=== PATIENT | female | born 2000 | race Caucasian/White ===

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

== ENCOUNTER 2021-03-04 12:20 | Emergency (ER) | payer MEDICAID, SELFPAY ==
[2021-03-04] VITALS (54 sets, daily range): BP systolic 109–172; BP diastolic 63–104; PULSE 81–144; RESP 0–36; TEMP 37; O2SAT 85–100; BMI 42.5
[2021-03-04] MEDS: LORazepam 2 mg/mL INJ 1 mL (12:23)
[2021-03-04] MEDS: succinylcholine 20 mg/mL SDV 10mL 120 MG IVP (12:38)
[2021-03-04] MEDS: propofol 10 mg/mL SDV 20 mL 50 MG IVP ×4 (12:41→13:12)
--- NOTE | 2021-03-04 12:42 | CT_ITS ---
WS: [id number] CT HEAD NONCONTRAST HISTORY: closed head injury TECHNIQUE: Contiguous axial imaging performed through the brain in 2.5 mm imaging. Bone and soft tiss ue windows. Sagittal and coronal reformats reviewed. All CT scans at [facility] use at ast one of these dose optimization techniques: automated exposure control; mA and/or kV adjustment pe r patient size (includes targeted exams where dose is matched to clinical indication); or iterative r econstruction. DLP: 983.73 mGy.cm COMPARISON: 11/05/2020 No acute intracranial hemorrhage, midline shift or mass effect. No atrophy or prior infarcts or herniation. Ventricles: Normal size with no hydrocephalus. Paranasal sinuses: Near complete opacification of the maxillary sinuses. Mastoid air cells: Well pneumatized. Calvarium and scalp: Skull is intact with no soft tissue edema or swelling. CT/CT head wo con* [id number] IMPRESSION: 1. No acute intracranial hemorrhage or edema. 2. Bilateral maxillary sinusitis.
--- NOTE | 2021-03-04 12:42 | CT_ITS ---
WS: [id number] CT CERVICAL SPINE HISTORY: fall TECHNIQUE: Contiguous 2.5 mm axial imaging performed through the entire cervical spine. Sagittal and coronal reformats also performed. All CT scans at [facility] use at least one of these do se optimization techniques: automated exposure control; mA and/or kV adjustment per patient size (inc ludes targeted exams where dose is matched to clinical indication); or iterative reconstruction. DLP: 738.27 mGy.cm COMPARISON: None available. Mild straightening of the normal cervical lordosis. Normal craniocervical alignment. Lateral masses o f C1 and C2 are aligned. Patient is intubated. Nasogastric tube is in place. C2-C3: Normal. C3-C4: Normal. C4-C5: Normal. C5-C6: Normal. C6-C7: Normal. C7-T1: Normal. Soft tissues are normal. Lung apices are clear. CT/CT cervical spin wo con* [id number] IMPRESSION: No cervical spine fracture.
--- NOTE | 2021-03-04 12:43 | XR_ITS ---
WS: [id number] Exam: XR chest 1V portable [id number] Date/Time of Exam: 03/04/2021 1:18 PM Reason For Exam: post intubation Comparison 11/05/2020. An endotracheal tube is in place ending about 4 cm above the dinorah in good position. An NG tube is b een placed and appears to end in the body the stomach. Patchy bilateral perihilar infiltrates are see n. The lungs are fully inflated. No pleural effusion. Normal cardiomediastinal silhouette and regiona l bony structures. XR/XR chest 1V portable [id number] IMPRESSION: 1. Bilateral perihilar infiltrates. 2. NG tube extending below the diaphragm and appearing to end in the body the s tomach. 3. ET tube in good position ending about 4 cm above the dinorah.
--- NOTE | 2021-03-04 12:48 | W.ED.SEIZURE ---
HPI - Seizure General: Chief Complaint: Seizure Stated Complaint: SEIZURES Time Seen by Provider: 03/04/21 12:24 History of Present Illness: HPI Narrative: 20-year-old female with a history of seizure disorder. This morning she was at a relatives house was taking a shower and they heard a large commotion went to the bathroom and found that she had fallen in the shower and witnessed a seizure. She arrived here 45 minutes to an hour afterwards 1 arrival here she had sonorous respirations and was hypoxic and tachycardic. I did witness a seizure as well she not have any tonic-clonic movement but had stiffened at the jaw and her extremities. EMS reports witnessing 2 seizures in route. Grandmother at the bedside believes she is on BuSpar and one other antiseizure medications according to our old records she is on zonisamide. They do not believe she is run out of or missed any medications recently. MD complaint: seizure Onset (ago): hour(s) Description of Episode: loss of consciousness and tonic-clonic movement Witnessed: Yes - by Bystander Seizure History: Yes Place: Home Possible Precipitating Event: medication (Her family had been titrating herself off of the seizure meds.) Treatments prior to arrival: airway maneuvers Review of Systems General: Reports: ROS unobtainable due to medical condition PFSH ED PFSH: Medical History (Updated 03/05/21 @ 06:32 by Augie Aguilera DO) Anxiety Seizure Seizure Viral meningitis Surgical History History of repair of ACL Football injury Family History Denies family history of Hyperlipidemia Lung disease Hypertension Social History Smoking and tobacco status: never smoked Alcohol intake: current Household members: family Housing: Other Details: Currently living with her grandparents Current occupational status: employed Current occupation: She works at [employer] Physical Exam Eye: COMMON NORMALS: Equal, round and reactive pupils present PUPIL: Yes Equal, round and reactive pupils present Resp: EFFORT & INSPECTION: Yes respiratory distress, Yes decreased respiratory effort, Yes labored and Yes grunting AUSCULTATION: rhonchi and diminished lung sounds Cardio: COMMON NORMALS: regular rhythm RATE: tachycardic RHYTHM: regular rhythm GI: COMMON NORMALS: Soft to palpation and No hepatosplenomegaly present AUSCULTATION: Yes normoactive bowel sounds PALPATION: Yes Soft to palpation, No Tenderness to palpation present (GI), No Guarding due to palpation present (GI) and Yes No hepatosplenomegaly present Extremity: COMMON NORMALS: normal to inspection, capillary refill normal, no clubbing, cyanosis or edema, no calf tenderness and no pedal edema Skin: COMMON NORMALS: no rashes or lesions noted GENERAL SKIN EXAM: no rashes or lesions noted Procedures Intubation Time out performed: Yes sedative: Etomidate Mg Given: 30 paralytic: Succinylcholine Mg Given: 120 Laryngoscope: Jodi ET Tube Size: 8 ET Tube Uncuffed: No Tube Secured Depth (cm): 22 Tube Secured Location: teeth Tube Placement Confirmation: visualized tube passing through cords, equal breath sounds bilaterally, no breath sounds over epigastrium and confirmation by capnometry Patient Tolerated Procedure: well Intubation Complications: none Additional Comments: Dr. Tran performed direct laryngoscopy intubation I proctored his attempt at the bedside. Intubation successful on first attempt. Course Vital Signs: Vital signs: Vital Signs Temperature 98.6 F 03/04/21 12:36 Pulse Rate 87 03/04/21 17:25 Respiratory Rate 9 L 03/04/21 17:25 Blood Pressure 131/97 03/04/21 17:25 Pulse Oximetry 100 03/04/21 17:25 MDM - Seizure MDM Narrative: Medical decision making narrative: Patient in severe respiratory distress with sonorous respirations on arrival. She she was significantly hypoxic. She was intubated and started on a ventilator. First blood gas had a pH is 7.25 that was 30 minutes after intubation another hour later repeat ABG showed her blood gases had essentially normalized. Patient has been started on Versed when it was an adequate for sedation propofol was added. She not had any further seizures.on chest x-ray it appears patient has had significant aspiration confirmed also by suctioning through the ET tube. She was started on clindamycin. She was loaded with Keppra as well as being on the Versed and propofol drips. Discussed course of care with the family. We do have ICU bed available there is also availability of pulmonology and neurology. Family wishes to have patient transferred that initially asked for transfer to [facility] however [facility] declined stating they did not have any available ICU beds at the time and additionally they felt we had appropriate resources to care for the patient. Family was informed the next chose to go to [facility] ICU. Contacted Dr. Bennett he agreed to accept the patient on transfer. Lab Data: Labs: Lab Results 03/04/21 03/04/21 03/04/21 Range/Units 12:20 13:30 13:30 WBC 13.5 H (4.5-13.0) 10^3/ uL RBC 4.93 (4.1-5.3) 10^6/u L Hgb 15.5 H (11.5-15.3) g/dL Hct 47.7 H (37.0-47.0) % MCV 96.8 (81-99) fL MCH 31.4 (28.0-34.0) pg MCHC 32.5 (30.0-36.0) g/dL RDW 12.3 (12.1-15.1) % Plt Count 375 (130-400) 10^3/c mm MPV 10.2 (7.4-10.4) fL Neut % (Auto) 51.4 % Lymph % (Auto) 39.0 % [place] % (Auto) 6.6 % Eos % (Auto) 1.5 % Baso % (Auto) 0.8 % Neut # (Auto) 6.92 (1.8-8.0) 10^3/u L Lymph # (Auto) 5.3 (1.5-6.5) 10^3/u L [place] # (Auto) 0.9 (0.2-0.9) 10^3/u L Eos # (Auto) 0.2 (0.0-0.8) 10^3/u L Baso # (Auto) 0.1 (0.0-0.1) 10^3/u L Nucleated RBC % (a uto) 0 % Nucleated RBCs # 0.0 /100WBC Specimen Type Sample Site ABG pH (7.35-7.45) ABG pCO2 (35-45) mmHg ABG pO2 (80.0-100.0) mmH g ABG HCO3 (22-26) mmol/L ABG O2 Saturation ABG Base Excess (-2.0-2.0) mmol/ L Jeffry Test A-a O2 Gradient (5-10) mmHg Hematocrit (37-47) % Hgb O2 Saturation (95-100) % Carboxyhemoglobin (0.4-20.1) %THgb Methemoglobin (0.4-1.5) % Total Hemoglobin (12-16) g/dL Sodium (131-143) mmol/L Potassium (3.5-5.0) mmol/L Glucose (70-115) mg/dL Ionized Calcium (1.1-1.4) mmol/L O2 Delivery Device O2 Liters/Min % FiO2 % Tidal Volume PEEP cmH20 Mailhouse Operator ID Chloride (98-107) mmol/L Carbon Dioxide (22-29) mmol/L Anion Gap (5-19) BUN (6-20) mg/dL Creatinine (0.5-0.9) mg/dL GFR Calculation (90-130) mL/min Calculated Osmolal ity (285-295) mOsm/k g Lactic Acid Calcium (8.5-10.5) mg/dL Magnesium (1.7-2.2) mg/dL Total Bilirubin (0.15-1.2) mg/dL AST (0-32) U/L ALT (0-33) U/L Alkaline Phosphata se (35-105) IU/L Creatine Kinase (26-192) U/L Total Protein (6.6-8.7) g/dL Albumin (3.5-5.2) g/dL Globulin (1.3-4.6) g/dL Urine Color Yellow (Yellow) Urine Appearance Hazy A (CLEAR) Urine pH 5 (5-7) Ur Specific Gravit y 1.025 (1.005-1.030) Urine Protein 2+ H (Negative) Urine Glucose (UA) 4+ H (Normal) Urine Ketones 1+ H (Negative) Urine Blood 2+ H (Negative) Urine Nitrate Negative (Negative) Urine Bilirubin Neg (Negative) Urine Urobilinogen Norm (Negative) mg/dL Ur Leukocyte Kayley ase Negative (Negative) Urine RBC 0-4 H (0-2) /hpf Urine WBC None (0-5) /hpf Ur Squamous Epith Cells 5-10 H (0-5) /hpf Amorphous Sediment Not Reportable Urine Bacteria Trace (NONE) /hpf Urine Opiates Scre en Negative (Negative) ng/mL Ur Barbiturates Sc reen Negative (Negative) ng/mL Ur Phencyclidine S crn Negative (Negative) ng/mL Ur Amphetamines Sc reen Negative (Negative) ng/mL U Benzodiazepines Scrn Negative (Negative) ng/mL Urine Cocaine Scre en Negative (Negative) ng/mL U Marijuana (THC) Screen Positive H (Negative) ng/mL Ethyl Alcohol (0-10) mg/dL 03/04/21 03/04/21 03/04/21 Range/Units 13:36 13:45 13:45 WBC (4.5-13.0) 10^3/ uL RBC (4.1-5.3) 10^6/u L Hgb (11.5-15.3) g/dL Hct (37.0-47.0) % MCV (81-99) fL MCH (28.0-34.0) pg MCHC (30.0-36.0) g/dL RDW (12.1-15.1) % Plt Count (130-400) 10^3/c mm MPV (7.4-10.4) fL Neut % (Auto) % Lymph % (Auto) % [place] % (Auto) % Eos % (Auto) % Baso % (Auto) % Neut # (Auto) (1.8-8.0) 10^3/u L Lymph # (Auto) (1.5-6.5) 10^3/u L [place] # (Auto) (0.2-0.9) 10^3/u L Eos # (Auto) (0.0-0.8) 10^3/u L Baso # (Auto) (0.0-0.1) 10^3/u L Nucleated RBC % (a uto) % Nucleated RBCs # /100WBC Specimen Type Arterial Sample Site Radial, left ABG pH 7.25 L (7.35-7.45) ABG pCO2 55.5 H (35-45) mmHg ABG pO2 77.2 L (80.0-100.0) mmH g ABG HCO3 24.4 (22-26) mmol/L ABG O2 Saturation 93.3 ABG Base Excess -3.8 L (-2.0-2.0) mmol/ L Jeffry Test Pos A-a O2 Gradient 45.8 H (5-10) mmHg Hematocrit 48.5 H (37-47) % Hgb O2 Saturation 91.3 L (95-100) % Carboxyhemoglobin 1.1 (0.4-20.1) %THgb Methemoglobin 1.0 (0.4-1.5) % Total Hemoglobin 15.8 (12-16) g/dL Sodium 139.0 137 (131-143) mmol/L Potassium 4.7 3.6 (3.5-5.0) mmol/L Glucose 132.0 H 207 H (70-115) mg/dL Ionized Calcium 1.3 (1.1-1.4) mmol/L O2 Delivery Device Vent O2 Liters/Min % FiO2 70.0 % Tidal Volume 0.50 PEEP cmH20 Mailhouse Operator ID Cak Chloride 99 (98-107) mmol/L Carbon Dioxide 18 L (22-29) mmol/L Anion Gap 23.6 H (5-19) BUN 9 (6-20) mg/dL Creatinine 0.8 (0.5-0.9) mg/dL GFR Calculation 92.4 (90-130) mL/min Calculated Osmolal ity 289 (285-295) mOsm/k g Lactic Acid Cancelled Calcium 9.2 (8.5-10.5) mg/dL Magnesium 1.8 (1.7-2.2) mg/dL Total Bilirubin 0.3 (0.15-1.2) mg/dL AST 21 (0-32) U/L ALT 27 (0-33) U/L Alkaline Phosphata se 86 (35-105) IU/L Creatine Kinase 129 (26-192) U/L Total Protein 8.0 (6.6-8.7) g/dL Albumin 4.8 (3.5-5.2) g/dL Globulin 3.2 (1.3-4.6) g/dL Urine Color (Yellow) Urine Appearance (CLEAR) Urine pH (5-7) Ur Specific Gravit y (1.005-1.030) Urine Protein (Negative) Urine Glucose (UA) (Normal) Urine Ketones (Negative) Urine Blood (Negative) Urine Nitrate (Negative) Urine Bilirubin (Negative) Urine Urobilinogen (Negative) mg/dL Ur Leukocyte Kayley ase (Negative) Urine RBC (0-2) /hpf Urine WBC (0-5) /hpf Ur Squamous Epith Cells (0-5) /hpf Amorphous Sediment Urine Bacteria (NONE) /hpf Urine Opiates Scre en (Negative) ng/mL Ur Barbiturates Sc reen (Negative) ng/mL Ur Phencyclidine S crn (Negative) ng/mL Ur Amphetamines Sc reen (Negative) ng/mL U Benzodiazepines Scrn (Negative) ng/mL Urine Cocaine Scre en (Negative) ng/mL U Marijuana (THC) Screen (Negative) ng/mL Ethyl Alcohol < 10 (0-10) mg/dL 03/04/21 03/04/21 03/04/21 Range/Units 14:45 14:54 16:08 WBC (4.5-13.0) 10^3/ uL RBC (4.1-5.3) 10^6/u L Hgb (11.5-15.3) g/dL Hct (37.0-47.0) % MCV (81-99) fL MCH (28.0-34.0) pg MCHC (30.0-36.0) g/dL RDW (12.1-15.1) % Plt Count (130-400) 10^3/c mm MPV (7.4-10.4) fL Neut % (Auto) % Lymph % (Auto) % [place] % (Auto) % Eos % (Auto) % Baso % (Auto) % Neut # (Auto) (1.8-8.0) 10^3/u L Lymph # (Auto) (1.5-6.5) 10^3/u L [place] # (Auto) (0.2-0.9) 10^3/u L Eos # (Auto) (0.0-0.8) 10^3/u L Baso # (Auto) (0.0-0.1) 10^3/u L Nucleated RBC % (a uto) % Nucleated RBCs # /100WBC Specimen Type Arterial Sample Site Brachial, right ABG pH 7.35 (7.35-7.45) ABG pCO2 43.1 (35-45) mmHg ABG pO2 104.0 H (80.0-100.0) mmH g ABG HCO3 23.5 (22-26) mmol/L ABG O2 Saturation 98.1 ABG Base Excess -2.3 L (-2.0-2.0) mmol/ L Jeffry Test Pos A-a O2 Gradient 43.9 H (5-10) mmHg Hematocrit 47.0 (37-47) % Hgb O2 Saturation 96.1 (95-100) % Carboxyhemoglobin 0.9 (0.4-20.1) %THgb Methemoglobin 1.1 (0.4-1.5) % Total Hemoglobin 15.3 (12-16) g/dL Sodium 140.0 (131-143) mmol/L Potassium 4.8 (3.5-5.0) mmol/L Glucose 104.0 (70-115) mg/dL Ionized Calcium 1.3 (1.1-1.4) mmol/L O2 Delivery Device Vent O2 Liters/Min 6.0 % FiO2 70.0 % Tidal Volume PEEP 5.0 cmH20 Mailhouse Operator ID Cak Chloride (98-107) mmol/L Carbon Dioxide (22-29) mmol/L Anion Gap (5-19) BUN (6-20) mg/dL Creatinine (0.5-0.9) mg/dL GFR Calculation (90-130) mL/min Calculated Osmolal ity (285-295) mOsm/k g Lactic Acid Cancelled 1.9 Calcium (8.5-10.5) mg/dL Magnesium (1.7-2.2) mg/dL Total Bilirubin (0.15-1.2) mg/dL AST (0-32) U/L ALT (0-33) U/L Alkaline Phosphata se (35-105) IU/L Creatine Kinase (26-192) U/L Total Protein (6.6-8.7) g/dL Albumin (3.5-5.2) g/dL Globulin (1.3-4.6) g/dL Urine Color (Yellow) Urine Appearance (CLEAR) Urine pH (5-7) Ur Specific Gravit y (1.005-1.030) Urine Protein (Negative) Urine Glucose (UA) (Normal) Urine Ketones (Negative) Urine Blood (Negative) Urine Nitrate (Negative) Urine Bilirubin (Negative) Urine Urobilinogen (Negative) mg/dL Ur Leukocyte Kayley ase (Negative) Urine RBC (0-2) /hpf Urine WBC (0-5) /hpf Ur Squamous Epith Cells (0-5) /hpf Amorphous Sediment Urine Bacteria (NONE) /hpf Urine Opiates Scre en (Negative) ng/mL Ur Barbiturates Sc reen (Negative) ng/mL Ur Phencyclidine S crn (Negative) ng/mL Ur Amphetamines Sc reen (Negative) ng/mL U Benzodiazepines Scrn (Negative) ng/mL Urine Cocaine Scre en (Negative) ng/mL U Marijuana (THC) Screen (Negative) ng/mL Ethyl Alcohol (0-10) mg/dL Critical Care Time Critical Care Time: Critical Care Time: Yes Total Critical Care Time: 60 Attestation: This case had a high probability of a clinically significant, sudden, or life threatening deterioration of this patient's condition which required my full and direct attention, intervention and personal management. Discharge Plan Discharge Patient Disposition: Xfer Short-Term Hosp Clinical Impression: Epileptic seizure, Aspiration into airway, Respiratory failure, acute Referrals: Malika Rodriguez MD [Primary Care Provider] - Coding Level of Care Code ED Rubber Off for Capri Charles
[2021-03-04] MEDS: vecuronium 10 mg SDV IVP (13:15)
[2021-03-04] MEDS: propofol 1,000 MG/100 ML INJ 7 MG (13:20)
[2021-03-04 13:47] LABS: ABG PCO2 55.5 mmHg (35-45); ABG PH Result 7.25 (7.35-7.45); Alveolar-Arterial Oxygen Gradi 45.8 mmHg (5-10); Arterial Blood Gas Hematocrit 48.5 % (37-47); Base Excess ABG -3.8 mmol/L (-2.0-2.0); Blood Gas Allen Test Pos; Blood Gas Operator Identificat CAK; Blood Gas Sample Site Radial, left; Blood Gas Sample Type Arterial; Carboxyhemoglobin 1.1 %THgb (0.4-20.1); HCO3 ABG 24.4 mmol/L (22-26); HGB O2 Sat 91.3 % (95-100); Ionized Calcium Level - ABG 1.3 mmol/L (1.1-1.4); Oxygen Device VENT; Oxygen Saturation ABG 93.3; PO2 ABG 77.2 mmHg (80.0-100.0); Potassium Level - ABG 4.7 mmol/L (3.5-5.0); Total Hemoglobin 15.8 g/dL (12-16)
[2021-03-04 14:00] LABS: Basophils # 0.1 10^3/uL (0.0-0.1); Basophils % 0.8 %; Eosinophils # 0.2 10^3/uL (0.0-0.8); Eosinophils % 1.5 %; Hematocrit 47.7 % (37.0-47.0); Hemoglobin 15.5 g/dL (11.5-15.3); Lymphocytes # 5.3 10^3/uL (1.5-6.5); Mean Corpuscular HGB Conc 32.5 g/dL (30.0-36.0); Mean Corpuscular Hemoglobin 31.4 pg (28.0-34.0); Mean Corpuscular Volume 96.8 fL (81-99); Mean Platelet Volume 10.2 fL (7.4-10.4); Monocytes # 0.9 10^3/uL (0.2-0.9); Monocytes % 6.6 %; Neutrophils # 6.92 10^3/uL (1.8-8.0); Neutrophils % 51.4 %; Nucleated Red Blood Cells % 0 %; Platelet Count 375 10^3/cmm (130-400); Red Blood Count 4.93 10^6/uL (4.1-5.3); Red Cell Distribution Width 12.3 % (12.1-15.1); White Blood Count 13.5 10^3/uL (4.5-13.0)
--- NOTE | 2021-03-04 14:14 | PC.NURSE ---
Pt arrived to ED at 1220 and was obtuned with RR at 36 and 85% on room air. Pt placed on 12L NRB mask requiring nasopharyngeal airway to left nare and jaw thrust performed by RT. Pt was sedated and intubated by Dr Tran at 1238 with an 8.0 tube, 23 at the lip. Pt tolerated procedure fair. Pt sats dropped to 81% during intubation and was brought up to 92% immediately upon intubation with BVM assist. Pt was taken to CT at 1313 with RT, this nurse and was on transport monitor. Pt required IVP Vecuronium during CT d/t inability to keep pt sedated. Pt placed on propofol gtt at 1320 upon return to room. Pt placed in soft wrist restraints at 1410 d/t pulling at tubes. Pt suctioned at this time. Pt vent settings as follows: TV 500, RR 14, Peep5, FiO2 60%.
[2021-03-04 14:23] LABS: Alanine Aminotransferase 27 U/L (0-33); Albumin Level 4.8 g/dL (3.5-5.2); Alkaline Phosphatase 86 IU/L (35-105); Anion Gap 23.6 (5-19); Aspartate Amino Transferase 21 U/L (0-32); Blood Urea Nitrogen 9 mg/dL (6-20); Calcium 9.2 mg/dL (8.5-10.5); Carbon Dioxide 18 mmol/L (22-29); Chloride 99 mmol/L (98-107); Creatine Phosphokinase 129 U/L (26-192); Globulin 3.2 g/dL (1.3-4.6); Glomerular Filtration Rate 92.4 mL/min (90-130); Glucose 207 mg/dL (65-115); Magnesium 1.8 mg/dL (1.7-2.2); Osmolality Calculated 289 mOsm/kg (285-295); Potassium 3.6 mmol/L (3.5-5.1); Sodium 137 mmol/L (136-145); Total Bilirubin 0.3 mg/dL (0.15-1.2)
[2021-03-04 14:27] LABS: Alcohol Level < 10 mg/dL (0-10)
[2021-03-04 14:29] LABS: Amphetamines Screen Urine Negative (Negative); Barbiturates Screen Urine Negative (Negative); Benzodiazepines Screen Urine Negative (Negative); Cocaine Screen Urine Negative (Negative); Opiate Screen Urine Negative (Negative); PCP Screen Urine Negative (Negative); THC Screen Urine Positive (Negative)
[2021-03-04 14:55] LABS: Add Urine Microscopic? YES; Bilirubin Urine Neg (Negative); Blood Urine 2+ (Negative); Glucose Urine UA 4+ (Normal); Ketones Urine 1+ (Negative); Leukocyte Esterase Urine Negative (Negative); Nitrate Urine Negative (Negative); Protein Urine 2+ (Negative); Specific Gravity, Urine 1.025 (1.005-1.030); Urine Appearance Hazy (CLEAR); Urine Color Yellow (Yellow); Urobilinogen Urine Norm (Negative); pH Urine 5 (5-7)
--- NOTE | 2021-03-04 14:58 | PC.NURSE ---
Dr Aguilera gave update to family.
[2021-03-04 14:59] LABS: Add Urine Culture? No; Bacteria Urine TRACE /hpf; RBC Urine 0-4 /hpf (0-2)
[2021-03-04] MEDS: sodium chloride 0.9% 1,000 ML 999 ML IV (15:05)
[2021-03-04 15:06] LABS: ABG PCO2 43.1 mmHg (35-45); ABG PH Result 7.35 (7.35-7.45); Alveolar-Arterial Oxygen Gradi 43.9 mmHg (5-10); Base Excess ABG -2.3 mmol/L (-2.0-2.0); Blood Gas Allen Test Pos; Blood Gas Operator Identificat CAK; Blood Gas Sample Site Brachial, right; Blood Gas Sample Type Arterial; Carboxyhemoglobin 0.9 %THgb (0.4-20.1); HCO3 ABG 23.5 mmol/L (22-26); HGB O2 Sat 96.1 % (95-100); Ionized Calcium Level - ABG 1.3 mmol/L (1.1-1.4); Methemoglobin 1.1 % (0.4-1.5); Oxygen Device VENT; Oxygen Saturation ABG 98.1; Potassium Level - ABG 4.8 mmol/L (3.5-5.0); Total Hemoglobin 15.3 g/dL (12-16)
[2021-03-04] MEDS: clindamycin 600 MG/50 ML PREMIX 100 MG IV (15:06)
--- NOTE | 2021-03-04 15:38 | PC.NURSE ---
Vent settings changed, now: TV 550, FiO2 70%, RR 16, Peep 5
[2021-03-04 16:42] LABS: Lactic Sepsis W/Reflex 1.9 mmol/L (0.5-2.2)
[2021-03-04] MEDS: propofol 1,000 MG/100 ML INJ 30.5 MG IV (16:59)
[2021-03-08 14:01] LABS: Zonisamide (Zonegran) <1.0 mcg/mL (10.0-40.0)
== END 2021-03-04 17:27 | disposition short-term general hospital (02) ==
PROVIDERS: Emergency Provider Family Medicine; PCP Family Medicine
DX: G40.909 Epilepsy, unspecified, not intractable, without status epilepticus (principal); J96.00 Acute respiratory failure, unspecified whether with hypoxia or hypercapnia
CPT/HCPCS: 31500; 36415; 36600; 51702; 70450; 71045; 72125; 80051; 80053; 80177; 80203; 80306; 80307; 81001; 82330; 82550; 82805; 83605; 83735; 85025; 94002; 94799; 96365; 96366; 96367; 99291; 99292; J0330; J1953; J2060; J2250; J2704; J3490; J7030

== ENCOUNTER 2022-12-16 14:17 | Emergency (ER) | payer MEDICAID, SELFPAY ==
[2022-12-16 14:22] VITALS: BP 119/82; PULSE 65; RESP 15; TEMP 36.9; O2SAT 97; BMI 32.6
--- NOTE | 2022-12-16 14:25 | ECG_ITS ---
[facility] Test Date: 2022-12-16 Pat Name: Aleksandra Figueroa Department: Room: Gender: Female Recycling Tech: : 2000 Requested By: Refugio Mcneil Order Number: [id number] Samir MD: Kinga Horvath M.D. Measurements Intervals [place] Rate: 67 P: 39 NM: 143 QRS: 67 QRSD: 94 T: 52 QT: 368 QTc: 391 Interpretive Statements SINUS RHYTHM WITH SINUS ARRHYTHMIA No previous ECG available for comparison Electronically Signed On 12-17-2022 0:09:[address] by Kinga Horvath M.D. [email or web address]
== END 2022-12-16 14:47 | disposition left against medical advice (07) ==
PROVIDERS: Emergency Provider Family Medicine; PCP Family Medicine
DX: Z53.21 Procedure and treatment not carried out due to patient leaving prior to being seen by health care provider (principal)
CPT/HCPCS: 93005

== ENCOUNTER 2022-12-16 17:24 | Emergency (ER) | payer MEDICAID, SELFPAY ==
[2022-12-16 17:45] VITALS: BP 127/84; PULSE 68; RESP 16; TEMP 36.4; O2SAT 100; BMI 35.7
--- NOTE | 2022-12-16 17:50 | ECG_ITS ---
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 Measurements Intervals [place] Rate: 70 P: 22 TX: 153 QRS: 57 QRSD: 89 T: 44 QT: 366 QTc: 397 Interpretive Statements SINUS RHYTHM Compared to ECG 12/16/2022 14:25:22 Sinus arrhythmia no longer present Electronically Signed On 12-17-2022 0:12:39 CYLINDER DYER by Kinga Horvath M.D. [email or web address]
--- NOTE | 2022-12-16 17:50 | XRR_ITS ---
PROCEDURE INFORMATION: Exam: XR Chest Exam date and time: 12/16/2022 6:05 PM Age: 21 years old Clinical indication: Pain; Chest pressure; Additional info: Cp TECHNIQUE: Imaging protocol: Radiologic exam of the chest. Views: 1 view. COMPARISON: CR XR chest 1V portable [id number] 03/04/2021 1:18 PM FINDINGS: Lungs: Unremarkable. No consolidation. Pleural spaces: Unremarkable. No pleural effusion. No pneumothorax. Heart/Mediastinum: Unremarkable. No cardiomegaly. Bones/joints: Unremarkable. XR/XR chest 1V portable [id number] IMPRESSION: No acute findings.
--- NOTE | 2022-12-16 19:48 | W.ED.CHESTPA ---
HPI - Chest Pain General: Chief Complaint: Chest Pain Stated Complaint: chest pain Time Seen by Provider: 12/16/22 19:43 History of Present Illness: 21-year-old female comes in today with complaints of anterior chest discomfort when bending to pick something up or taking a deep breath. Patient denies any fever or cough. Patient does report some mild shortness of breath. Patient does have a history of seizure disorder and asthma. Associated symptoms: Reports dyspnea; Deny fever(s) Review of Systems Const: Denies: fever(s) Card: Reports: chest pain Resp: Reports: dyspnea PFSH ED PFSH: Medical History (Updated 12/16/22 @ 20:06 by TWILA Craft) Anxiety Seizure Seizure Viral meningitis Surgical History History of repair of ACL Football injury Family History Denies family history of Hyperlipidemia Lung disease Hypertension Social History Smoking and tobacco status: never smoked Alcohol intake: current Household members: family Housing: Other Details: Currently living with her grandparents Current occupational status: employed Current occupation: She works at [employer] Physical Exam Const: COMMON NORMALS: alert HENMT: COMMON NORMALS: normocephalic HEAD & SCALP: normocephalic Neck/C-Spine: COMMON NORMALS: full ROM Resp: COMMON NORMALS: normal respiratory effort AUSCULTATION: wheezes inspiratory wheezes (Right anterior upper lung) Cardio: COMMON NORMALS: regular rate and regular rhythm RATE: regular rate RHYTHM: regular rhythm GI: COMMON NORMALS: non-tender : COMMON NORMALS: Yes no CVA tenderness BLADDER/KIDNEY EXAM: Yes no CVA tenderness Back/Pelvis: COMMON NORMALS: no CVA tenderness Extremity: COMMON NORMALS: no pedal edema Neuro: SENSORIUM/ORIENTATION: Yes alert Skin: COMMON NORMALS: turgor normal GENERAL SKIN EXAM: turgor normal Course Vital Signs: Vital signs: Vital Signs Temperature 97.6 F 12/16/22 17:45 Pulse Rate 68 12/16/22 17:45 Respiratory Rate 16 12/16/22 17:45 Blood Pressure 127/84 12/16/22 17:45 Pulse Oximetry 100 12/16/22 17:45 Oxygen Delivery Me thod 12/16/22 17:45 MDM - Chest Pain Medical Decision Making 21-year-old female comes in today for complaints of chest wall pain increased with deep inspiration or bending over. On exam lungs have a inspiratory wheeze loudest on the right upper lung. Skin is warm and dry. Vital signs are normal. Abdomen soft nontender. No edema is noted in the extremities. Patient did admit to a history of asthma as a child. Patient does vape regularly. Differential diagnosis includes but not limited to exacerbation of asthma, pneumonia, bronchitis. Chest x-ray was unremarkable. Laboratory values were normal. Believe the patient probably has an exacerbation of her asthma. Patient was given a dose of steroid and started on albuterol inhaler to use as needed. Patient reported understanding with recommendations for follow-up with primary care as needed. Lab Data 12/16/22 19:55 12/16/22 19:55 Radiology Impressions Chest X-Ray 12/16/22 17:50 IMPRESSION: No acute findings. Laboratory Results WBC 5.5 10^3/uL (4.5-13.0) 12/16/22 19:55 RBC 4.19 10^6/uL (4.1-5.3) 12/16/22 19:55 Hgb 12.4 g/dL (11.5-15.3) 12/16/22 19:55 Hct 38.0 % (37.0-47.0) 12/16/22 19:55 MCV 90.7 fl (81-99) 12/16/22 19:55 MCH 29.6 pg (28.0-34.0) 12/16/22 19:55 MCHC 32.6 g/dL (30.0-36.0) 12/16/22 19:55 RDW 11.3 % (12.1-15.1) L 12/16/22 19:55 Plt Count 345 10^3/cmm (130-400) 12/16/22 19:55 MPV 9.6 fL (7.4-10.4) 12/16/22 19:55 Neut % (Auto) 47.8 % 12/16/22 19:55 Lymph % (Auto) 40.5 % 12/16/22 19:55 [place] % (Auto) 9.3 % 12/16/22 19:55 Eos % (Auto) 1.5 % 12/16/22 19:55 Baso % (Auto) 0.7 % 12/16/22 19:55 Neut # (Auto) 2.63 10^3/uL (1.8-8.0) 12/16/22 19:55 Lymph # (Auto) 2.2 10^3/uL (1.5-6.5) 12/16/22 19:55 [place] # (Auto) 0.5 10^3/uL (0.2-0.9) 12/16/22 19:55 Eos # (Auto) 0.1 10^3/uL (0.0-0.8) 12/16/22 19:55 Baso # (Auto) 0.0 10^3/uL (0.0-0.1) 12/16/22 19:55 Nucleated RBC % (auto) 0 % 12/16/22 19:55 Nucleated RBCs # 0.0 /100WBC 12/16/22 19:55 D-Dimer 0.36 ug/mIFEU (0-0.59) 12/16/22 19:55 Sodium 139 mmol/L (136-145) 12/16/22 19:55 Potassium 4.4 mmol/L (3.5-5.1) 12/16/22 19:55 Chloride 103 mmol/L (98-107) 12/16/22 19:55 Carbon Dioxide 26 mmol/L (22-29) 12/16/22 19:55 Anion Gap 14.4 (5-19) 12/16/22 19:55 BUN 12 mg/dL (6-20) 12/16/22 19:55 Creatinine 0.7 mg/dL (0.5-0.9) 12/16/22 19:55 GFR Calculation 106.7 mL/min (90-130) 12/16/22 19:55 Glucose 86 mg/dL (65-115) 12/16/22 19:55 Calculated Osmolality 287 mOsm/kg (285-295) 12/16/22 19:55 Calcium 9.4 mg/dL (8.5-10.5) 12/16/22 19:55 Total Bilirubin 0.2 mg/dL (0.15-1.2) 12/16/22 19:55 AST 16 U/L (0-32) 12/16/22 19:55 ALT 20 U/L (0-33) 12/16/22 19:55 Alkaline Phosphatase 112 U/L (35-105) H 12/16/22 19:55 Troponin T Gen 5 ng/L 6 ng/L (0-10) 12/16/22 19:55 C-Reactive Protein 3.6 mg/L (0.0-4.9) 12/16/22 19:55 NT-Pro-B Natriuret Pep 36 pg/mL (0-125) 12/16/22 19:55 Total Protein 6.7 g/dL (6.6-8.7) 12/16/22 19:55 Albumin 4.1 g/dL (3.5-5.2) 12/16/22 19:55 Globulin 2.6 g/dL (1.3-4.6) 12/16/22 19:55 Lipase 36 U/L (13-60) 12/16/22 19:55 Discharge Plan Discharge Patient Disposition: Home Clinical Impression: Asthma exacerbation Qualifiers: Asthma severity: mild Asthma persistence: intermittent Qualified Code(s): J45.21 - Mild intermittent asthma with (acute) exacerbation Condition: Stable Prescriptions: New prednisone 20 mg tablet 20 mg PO DAILY Qty: 5 0RF albuterol sulfate 90 mcg/actuation HFA aerosol inhaler 2 inh inhalation Q4H PRN (Reason: shortness of breath or wheezing) Qty: 16 0RF No Action levetiracetam 750 mg tablet 1,500 mg PO DAILY Discharge Orders: Discharge ED (Routine); Ordered 12/16/22 Ordered By: Arya Smith Referrals: Malika Rodriguez MD [Primary Care Provider] - Discharge Diet: Usual diet Discharge Activity: Increase activity as tolerated Patient Instructions: Asthma (ED) Activity Restrictions/Additional Instructions: Use albuterol 2 puffs every 4 hours as needed for shortness of breath, chest tightness, or wheezing. Drink plenty of water with medications. Use Tylenol or ibuprofen for pain. Follow-up with primary care for further instruction. Return to ED for worsening symptoms such as increased shortness of breath, fever greater than 100.4, or new concerns. Coding Level of Care Code ED Vending Route Driver for Capri Charles
[2022-12-16 20:03] LABS: Basophils % 0.7 %; Eosinophils # 0.1 10^3/uL (0.0-0.8); Eosinophils % 1.5 %; Hemoglobin 12.4 g/dL (11.5-15.3); Lymphocytes # 2.2 10^3/uL (1.5-6.5); Lymphocytes % 40.5 %; Mean Corpuscular HGB Conc 32.6 g/dL (30.0-36.0); Mean Corpuscular Hemoglobin 29.6 pg (28.0-34.0); Mean Corpuscular Volume 90.7 fl (81-99); Mean Platelet Volume 9.6 fL (7.4-10.4); Monocytes # 0.5 10^3/uL (0.2-0.9); Monocytes % 9.3 %; Neutrophils # 2.63 10^3/uL (1.8-8.0); Neutrophils % 47.8 %; Nucleated Red Blood Cells % 0 %; Platelet Count 345 10^3/cmm (130-400); Red Blood Count 4.19 10^6/uL (4.1-5.3); Red Cell Distribution Width 11.3 % (12.1-15.1); White Blood Count 5.5 10^3/uL (4.5-13.0)
[2022-12-16] MEDS: dexamethasone 4 mg Tablet 10 MG PO (20:07)
[2022-12-16 20:18] LABS: D Dimer 0.36 ug/mIFEU (0-0.59)
[2022-12-16 20:23] LABS: Troponin T (5th) Once 6 ng/L (0-10)
[2022-12-16 20:32] LABS: Alanine Aminotransferase 20 U/L (0-33); Albumin Level 4.1 g/dL (3.5-5.2); Alkaline Phosphatase 112 U/L (35-105); Anion Gap 14.4 (5-19); Aspartate Amino Transferase 16 U/L (0-32); Blood Urea Nitrogen 12 mg/dL (6-20); C Reactive Protein 3.6 mg/L (0.0-4.9); Calcium 9.4 mg/dL (8.5-10.5); Carbon Dioxide 26 mmol/L (22-29); Chloride 103 mmol/L (98-107); Globulin 2.6 g/dL (1.3-4.6); Glomerular Filtration Rate 106.7 mL/min (90-130); Glucose 86 mg/dL (65-115); Lipase 36 U/L (13-60); NT Pro B Type Natriuretic Pept 36 pg/mL (0-125); Osmolality Calculated 287 mOsm/kg (285-295); Potassium 4.4 mmol/L (3.5-5.1); Sodium 139 mmol/L (136-145); Total Bilirubin 0.2 mg/dL (0.15-1.2); Total Protein 6.7 g/dL (6.6-8.7)
[2022-12-16] MEDS: albuterol 8 gm MDI 2 PUFF INHALATION (20:43)
[2022-12-16 20:46] VITALS: PULSE 78; RESP 18; O2SAT 93
[2022-12-16 20:48] VITALS: PULSE 83; RESP 16; O2SAT 98
[2022-12-16 20:50] VITALS: PULSE 83; RESP 16; O2SAT 98
== END 2022-12-16 20:49 | disposition home or self-care (01) ==
PROVIDERS: Emergency Provider Nurse Practitioner Family; PCP Family Medicine
DX: J45.21 Mild intermittent asthma with (acute) exacerbation (principal)
CPT/HCPCS: 36415; 71045; 80053; 83690; 83880; 84484; 85025; 85378; 86140; 93005; 94640; 99284; J3535; J8540

== ENCOUNTER 2022-12-21 20:08 | Inpatient (IN) | payer MEDICAID, SELFPAY ==
[2022-12-21 20:09] VITALS: BMI 33.3
[2022-12-21 20:15] VITALS: BP 128/88; PULSE 89; RESP 16; TEMP 36.6; O2SAT 96
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
[2022-12-21 21:18] LABS: Basophils # 0.1 10^3/uL (0.0-0.1); Basophils % 0.6 %; Eosinophils # 0.1 10^3/uL (0.0-0.8); Eosinophils % 0.6 %; Hematocrit 38.8 % (37.0-47.0); Hemoglobin 12.8 g/dL (11.5-15.3); Lymphocytes # 2.7 10^3/uL (0.8-4.8); Mean Corpuscular Hemoglobin 28.8 pg (28.0-34.0); Mean Corpuscular Volume 87.4 fl (81-99); Mean Platelet Volume 9.9 fL (7.4-10.4); Monocytes # 0.6 10^3/uL (0.2-0.9); Monocytes % 5.8 %; Neutrophils % 65.4 %; Nucleated Red Blood Cells % 0 %; Platelet Count 297 10^3/cmm (130-400); Red Blood Count 4.44 10^6/uL (4.1-5.3); Red Cell Distribution Width 11.1 % (12.1-15.1); White Blood Count 10.1 10^3/uL (4.0-10.0)
[2022-12-21 21:27] LABS: HCG Qualitative Urine. Negative (Negative)
[2022-12-21 21:28] LABS: Urine Color Colorless (Yellow)
[2022-12-21 21:29] LABS: Leukocyte Esterase Urine Trace (Negative); Urine Appearance Clear (CLEAR); pH Urine 7 (5-7)
[2022-12-21 21:30] LABS: Add Urine Microscopic? YES; Amphetamines Screen Urine Negative (Negative); Barbiturates Screen Urine Negative (Negative); Benzodiazepines Screen Urine Negative (Negative); Cocaine Screen Urine Negative (Negative); Opiate Screen Urine Negative (Negative); PCP Screen Urine Negative (Negative); THC Screen Urine Positive (Negative)
[2022-12-21 21:32] LABS: Add Urine Culture? No; Bacteria Urine 1+ /hpf; WBC Urine 0-4 /hpf (0-5)
--- NOTE | 2022-12-21 21:35 | ECG_ITS ---
[facility] Test Date: 2022-12-21 Pat Name: Aleksandra Figueroa Department: Room: Gender: Female Recruitment Manager: : 2000 Requested By: Rudy Hebert Order Number: [id number] Samir MD: Royce Maloney M.D. Measurements Intervals [place] Rate: 88 P: 45 NH: 170 QRS: 68 QRSD: 91 T: 33 QT: 341 QTc: 414 Interpretive Statements SINUS RHYTHM Compared to ECG 12/16/2022 17:54:53 No significant changes Electronically Signed On 12-22-2022 7:43:54 SOFT SUGAR OPERATOR HEAD by Royce Maloney M.D. [id number]
[2022-12-21 21:39] LABS: Influenza A by IFA negative (Negative); Influenza B by IFA negative (Negative); SARS Covid-2 Antigen negative (Negative)
[2022-12-21 21:42] LABS: Alanine Aminotransferase 30 U/L (0-33); Albumin Level 4.1 g/dL (3.5-5.2); Alcohol Level 205 mg/dL (0-10); Alkaline Phosphatase 114 U/L (35-105); Anion Gap 17.4 (5-19); Aspartate Amino Transferase 43 U/L (0-32); Blood Urea Nitrogen 10 mg/dL (6-20); Calcium 8.6 mg/dL (8.5-10.5); Carbon Dioxide 20 mmol/L (22-29); Chloride 108 mmol/L (98-107); Globulin 2.4 g/dL (1.3-4.6); Glomerular Filtration Rate 105.6 mL/min (90-130); Glucose 94 mg/dL (65-115); Osmolality Calculated 293 mOsm/kg (285-295); Potassium 3.4 mmol/L (3.5-5.1); Sodium 142 mmol/L (136-145); Thyroid Stimulating Hormone 1.34 uIU/mL (0.27-4.20); Total Bilirubin 0.2 mg/dL (0.15-1.2); Total Protein 6.5 g/dL (6.6-8.7)
[2022-12-21 21:43] LABS: Acetaminophen < 5.0 ug/mL (10-30); Salicylate < 0.3 mg/dL (3-10)
--- NOTE | 2022-12-21 22:00 | PC.NURSE ---
Pt given copy of 96 Hour Hold Rights by this nurse and security. All questions answered.
--- NOTE | 2022-12-21 22:15 | XRR_ITS ---
PROCEDURE INFORMATION: Exam: XR Left Shoulder Exam date and time: 12/21/2022 10:21 PM Age: 22 years old Clinical indication: Pain; Shoulder; Left; Additional info: Pain; Injury TECHNIQUE: Imaging protocol: Radiologic exam of the Left shoulder. Views: 2 or more views. COMPARISON: CR (CHEST, ) 12/16/2022 6:05 PM FINDINGS: Bones/joints: Normal. No dislocation. The AC joint is normally aligned Soft tissues: Normal. XR/XR shoulder LT min 2V* [id number] IMPRESSION: Normal
[2022-12-21 22:22] VITALS: BP 124/75; PULSE 84; RESP 18; TEMP 36.7; O2SAT 96
[2022-12-21] MEDS: potassium chloride ER 20 mEq Tablet PO (22:28)
[2022-12-21 23:06] VITALS: BP 106/83; PULSE 80; RESP 18; O2SAT 100
[2022-12-22] MEDS: ibuprofen 600 mg Tablet PO (00:05)
[2022-12-22] MEDS: blistex lip oint 7 gm Tube 1 APPLIC TOPICAL (00:39)
[2022-12-22] MEDS: LORazepam 2 mg Tablet PO (04:30)
[2022-12-22] MEDS: nicotine 2 mg Gum BUCCAL (04:30)
--- NOTE | 2022-12-22 04:34 | PC.NURSE ---
patient came to nurses station and was visibly diaphoretic, timorous, anxious and slightly agitated, CIWA assessment was done. Patient scored 14 and was given 2mg Ativan PO.
[2022-12-22 06:00] VITALS: BP 146/92; PULSE 118; RESP 22; TEMP 37; O2SAT 93
[2022-12-22 08:43] VITALS: BP 154/94; PULSE 111; RESP 20; TEMP 37.1; O2SAT 93
[2022-12-22] MEDS: multivitamin therapeutic Tablet 1 TAB PO (08:43)
[2022-12-22] MEDS: levETIRAcetam 500 mg Tablet 1500 MG PO (08:43)
[2022-12-22] MEDS: folic acid 1 mg Tablet PO (08:43)
[2022-12-22] MEDS: thiamine 100 mg Tablet PO (08:43)
[2022-12-22] MEDS: OLANZapine 5 mg ODT PO (08:45)
--- NOTE | 2022-12-22 16:07 | PC.NURSE ---
BRANDY HOWE FROM [facility] CAME TO NPU REQUESTING TO SPEAK TO THE PT. PT AGREED TO VISIT WITH HER BUT ASK IF THIS NURSE WOULD STAY IN PT ROOM DURING VISIT. PT AUTHORIZED THIS NURSE TO GIVE THE CONSTRUCTION SAFETY MANAGER ADDRESSES AND PHONE NUMBERS OUT OF HER CHART BECAUSE SHE COULD NOT REMEMBER THEM. BRANDY LEFT HER PHONE NUMBER AND ASK THAT IF ANY PERTINENT INFORMATION ARISES FOR US TO CALL HER. PHONE: [phone] FAX: [phone]
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
[2022-12-22 16:47] VITALS: BP 106/64; PULSE 62; RESP 18; TEMP 37.1; O2SAT 95
[2022-12-22 20:05] VITALS: BP 105/66; PULSE 64; RESP 16; TEMP 37.3; O2SAT 93
[2022-12-23 06:00] VITALS: BP 111/69; PULSE 90; RESP 18; TEMP 36.8; O2SAT 93
[2022-12-23] MEDS: multivitamin therapeutic Tablet 1 TAB PO (07:16)
[2022-12-23] MEDS: folic acid 1 mg Tablet PO (07:16)
[2022-12-23] MEDS: levETIRAcetam 500 mg Tablet 1500 MG PO (07:16)
[2022-12-23] MEDS: thiamine 100 mg Tablet PO (07:17)
[2022-12-23] MEDS: docusate sodium 100 mg Capsule PO (13:06)
[2022-12-23 14:00] VITALS: BP 125/83; PULSE 78; RESP 18; TEMP 36.8; O2SAT 97
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
[2022-12-23 20:44] VITALS: BP 123/82; PULSE 82; RESP 18; TEMP 36.7; O2SAT 98
[2022-12-24 06:00] VITALS: BP 142/85; PULSE 116; RESP 18; TEMP 37; O2SAT 98
[2022-12-24] MEDS: folic acid 1 mg Tablet PO (08:47)
[2022-12-24] MEDS: thiamine 100 mg Tablet PO (08:47)
[2022-12-24] MEDS: levETIRAcetam 500 mg Tablet 1500 MG PO (08:47)
[2022-12-24] MEDS: multivitamin therapeutic Tablet 1 TAB PO (08:47)
--- NOTE | 2022-12-24 12:11 | P.NPUDS_ITS ---
Diagnoses at Discharge Discharge Diagnosis (1) Anxiety disorder, unspecified: Status: Acute (2) Post-ictal confusion: Status: Acute (3) Suicidal ideation: Status: Acute (4) Alcohol intoxication: Status: Acute Qualifiers: Complication of substance-induced condition: uncomplicated Qualified Code(s): F10.920 - Alcohol use, unspecified with intoxication, uncomplicated Reason for Visit Reason for Visit: SI, ETOH Hospital Course Hospital Course During the hospitalization, patient had routine laboratory studies which were within normal limits except for few outliers. Additionally there was a general medical evaluation which was also within normal limits and revealed no new acute processes. At the time of discharge, lethality was denied and psychosis was resolving. Mood and anxiety were well managed. Patient endorsed a plan to avoid all drugs of abuse and follow-up with the aftercare recommendations of the treatment team. Patient was evaluated and deemed to be absent credible lethality, and had achieved the maximum benefit from an inpatient hospitalization, so was discharged. She was agreeable for psychotherapy at [facility]. Involuntary Hold Information 96 Hour Hold: 96 Hour Involuntary Admission: Yes 96 Hour Hold Ending Date: 12/25/22 96 Hour Hold Ending Time: 20:08 Mental Status Exam MSE Comments: The patient appeared pleasant and cooperative on interview. She appeared in no acute distress. Her speech was normal in regards to rate rhythm and prosody. She was alert and oriented to person place time and situation. Her mood was described as better. Her affect was mood incongruent and somewhat flat. Her thought process was linear logical and goal-directed. Her thought content showed no evidence of active homicidal or suicidal ideation. There was no clear evidence of delusional thinking. She did not appear to be responding to internal stimuli. Her attention span appeared variable. Her insight is fair. Her judgment is adequate. Her impulse control was improving. Discharge Data Studies Completed and Pending: Completed Studies During Hospitalization Category Date Time Status XR forearm RT 2V [id number] Urgent Exams 12/21/22 21:13 Completed XR shoulder LT mi n 2V* [id number] Urgent Exams 12/21/22 22:15 Completed Radiology Impressions Forearm X-Ray 12/21/22 21:13 IMPRESSION: 1. No acute bony findings 2. Localized swelling in the forearm Shoulder X-Ray 12/21/22 22:15 IMPRESSION: Normal Laboratory Results WBC 10.1 10^3/uL (4.0 -10.0) H 12/21/22 20:40 RBC 4.44 10^6/uL (4.1 -5.3) 12/21/22 20:40 Hgb 12.8 g/dL (11.5-1 5.3) 12/21/22 20:40 Hct 38.8 % (37.0-47.0 ) 12/21/22 20:40 MCV 87.4 fl (81-99) 12/21/22 20: MCH 28.8 pg (28.0-34. 0) 12/21/22 20: MCHC 33.0 g/dL (30.0-3 6.0) 12/21/22 20: RDW 11.1 % (12.1-15.1 ) L 12/21/22: Plt Count 297 10^3/cmm (130 -400) 12/21/22 20:40 MPV 9.9 fL (7.4-10.4) 12/21/22 20:40 Neut % (Auto) 65.4 % 12/21/22:40 Lymph % (Auto) 27.0 % 12/21/22 20:40 Wake % (Auto) 5.8 % 12/21/22 20:40 Eos % (Auto) 0.6 % 12/21/22 20:40 Baso % (Auto) 0.6 % 12/21/22:40 Neut # (Auto) 6.60 10^3/uL (1.8 -7.7) 12/21/22 20:40 Lymph # (Auto) 2.7 10^3/uL (0.8- 4.8) 12/21/22 20:40 Wake # (Auto) 0.6 10^3/uL (0.2- 0.9) 12/21/22 20:40 Eos # (Auto) 0.1 10^3/uL (0.0- 0.8) 12/21/22 20:40 Baso # (Auto) 0.1 10^3/uL (0.0- 0.1) 12/21/22 20:40 Nucleated RBC % (a uto) 0 % 12/21/22: Nucleated RBCs # 0.0 /100WBC 12/21/22: Sodium 142 mmol/L (136-1 45) 02/13/23 20:40 Potassium 3.4 mmol/L (3.5-5 .1) L 12/21/22 20:40 Chloride 108 mmol/L (98-10 7) H 12/21/22 20:40 Carbon Dioxide 20 mmol/L (22-29) L 12/21/22 20:40 Anion Gap 17.4 (5-19) 12/21/22 20:40 BUN 10 mg/dL (6-20) 12/21/22:40 Creatinine 0.7 mg/dL (0.5-0. 9) 12/21/22 20:40 GFR Calculation 105.6 mL/min (90- 130) 12/21/22: Glucose 94 mg/dL (65-115) 12/21/22: Calculated Osmolal ity 293 mOsm/kg (285- 295) 12/21/22 20:40 Calcium 8.6 mg/dL (8.5-10 .5) 12/21/22:40 Total Bilirubin 0.2 mg/dL (0.15-1 .2) 12/21/22 20:40 AST 43 U/L (0-32) H 12/21/22 20:40 ALT 30 U/L (0-33) 12/21/22 20:40 Alkaline Phosphata se 114 U/L (35-105) H 12/21/22 20:40 Total Protein 6.5 g/dL (6.6-8.7 ) L 12/21/22 20:40 Albumin 4.1 g/dL (3.5-5.2 ) 12/21/22:40 Globulin 2.4 g/dL (1.3-4.6 ) 12/21/22 20:40 TSH 1.34 uIU/mL (0.27 -4.20) 12/21/22 20:40 HCG, Qual Negative (Negati ve) 12/21/22: Urine Color Colorless (Yello w) 12/21/22 20: Urine Appearance Clear (CLEAR) 12/21/22 20: Urine pH 7 (5-7) 12/21/22 20: Ur Specific Gravit y 1.010 (1.005-1.0 30) 12/21/22: Urine Protein Not Reportable 02/13/23 20:28 Urine Glucose (UA) Not Reportable 12/21/22 20:28 Urine Ketones Not Reportable 12/21/22 20:28 Urine Blood Not Reportable 12/21/22 20:28 Urine Nitrate Not Reportable 12/21/22 20:28 Urine Bilirubin Not Reportable 12/21/22 20:28 Urine Urobilinogen Not Reportable 12/21/22 20:28 Ur Leukocyte Kayley ase Trace (Negative) H 12/21/22 20:28 Urine RBC None /hpf (0-2) 12/21/22 20:28 Urine WBC 0-4 /hpf (0-5) H 12/21/22 20:28 Ur Squamous Epith Cells 10-15 /hpf (0-5) H 12/21/22 20:28 Amorphous Sediment Not Reportable 12/21/22 20:28 Urine Bacteria 1+ /hpf (NONE) H 12/21/22 20:28 Salicylates < 0.3 mg/dL (3-10 ) L 12/21/22 20:40 Urine Opiates Scre en Negative ng/mL (N egative) 12/21/22 20:28 Acetaminophen < 5.0 ug/mL (10-3 0) L 12/21/22 20:40 Ur Barbiturates Sc reen Negative ng/mL (N egative) 12/21/22 20:28 Ur Phencyclidine S crn Negative ng/mL (N egative) 12/21/22 20:28 Ur Amphetamines Sc reen Negative ng/mL (N egative) 12/21/22 20:28 U Benzodiazepines Scrn Negative ng/mL (N egative) 12/21/22 20:28 Urine Cocaine Scre en Negative ng/mL (N egative) 12/21/22 20:28 U Marijuana (THC) Screen Positive ng/mL (N egative) H 12/21/22 20:28 Ethyl Alcohol 205 mg/dL (0-10) H 12/21/22 20:40 Influenza Type A A g negative (Negati ve) 12/21/22 21:15 Influenza Type B A g negative (Negati ve) 12/21/22 21:15 SARS-CoV-2 Ag (Rap id) negative (Negati ve) 12/21/22 21:15 Vitals: Last Vital Signs Temp 98.6 F 12/24/22 06:00 Pulse 116 H 12/24/22 06:00 Resp 18 12/24/22 06:00 BP 142/85 12/24/22 06:00 Pulse Ox 98 12/24/22 06:00 O2 Del Method 12/24/22 06:00 Discharge Plan Discharge Patient Disposition: Home Condition: Stable Prescriptions: Continued levetiracetam 750 mg tablet 1,500 mg PO DAILY Discharge Orders: Discharge Order (Routine); Ordered 12/24/22 Ordered By: Jorge Burdick Referrals: Katie Blackwood[facility] [Other] (Call for insurance questions) [facility] [Outside] - 12/31/22 2:30 pm (Initial appointment with Candida Wright) Billie Dickinson NP [Nurse Practitioner] - 12/30/22 10:00 am (Establish care) Malika Rodriguez MD [Primary Care Provider] - Discharge Diet: Usual diet Discharge Activity: Resume usual activity Patient Instructions: Depression (DC), Suicide Prevention (DC), Opioid Safety Discharge Attestations NPU Time Spent in Discharge Care*: less than 30 min Specific Discharge Activities: Specific discharge activities: educating patient, discussing with pcp/other providers, discussing with caser up/social workers/dc planners, documenting/other paperwork and evaluating patient/reviewing data Coding Level of Care Code Acute Chg FW DC note Diagnoses Anxiety disorder, unspecified F41.9 Post-ictal confusion F05 Suicidal ideation R45.851 Alcohol intoxication F10.920 Complication of substance-induced condition: uncomplicated
[2022-12-24 12:26] VITALS: BP 142/85; PULSE 116; RESP 18; TEMP 37; O2SAT 98
== END 2022-12-24 12:54 | disposition home or self-care (01) | DRG 897 ==
LOC: ER 22:22 → NP 22:53
PROVIDERS: Admitting Provider Psychiatry & Neurology Psychiatry; Emergency Provider Family Medicine; PCP Family Medicine; Visit Provider Psychiatry & Neurology Psychiatry
DX: F10.129 Alcohol abuse with intoxication, unspecified (principal); R45.851 Suicidal ideations; Y90.9 Presence of alcohol in blood, level not specified; F32.A Depression, unspecified; S50.11XA Contusion of right forearm, initial encounter; S40.012A Contusion of left shoulder, initial encounter; X58.XXXA Exposure to other specified factors, initial encounter; F41.9 Anxiety disorder, unspecified
CPT/HCPCS: 73030; 73090; 80053; 80306; 80307; 81001; 81025; 84443; 85025; 87426; 87804; 93005; 97150; 97165; 99238; 99285

== ENCOUNTER 2025-07-07 03:21 | Observation (INO) | payer MEDICAID, SELFPAY ==
--- OUTSIDE RECORDS SUMMARY | 2023-09-23 04:56 | XMS_ITS | Continuity of Care Document ---
Author Organization [facility] Address [address] [id number] [address] Phone Care Team Providers Care Trim Setter Name Role Phone Coordinator, Care Unavailable Unavailable Allergies, Adverse Reactions, Alerts Substance Reaction Status Criticality No Known Allergies Active No Inform ation Medications Medication Instructions Dosage Effective Dates (start - stop) Status Comments amoxicillin 500 mg capsule First dose take 2 caps then take 1 capsule by oral route every 6 hours - Active ondansetron 4 mg disintegrating tablet take 1 tablet by oral route every [address] on top of the tongue where they will dissolve, then swallow 4 MG - Active folic acid 1 mg tablet take 1 tablet by oral route every day 1 MG - Active Niva-Plus 27 mg iron-1 mg tablet take 1 by oral route every day 1 - Active ProAir RespiClick 90 mcg/actuation breath activated inhale 2 puff by inhalation route every 4 - 6 hours as needed 180 MCG - Active Keppra 750 mg tablet take 2 tablet by oral route daily - Active Dulera 100 mcg-5 mcg/actuation HFA aerosol inhaler inhale 2 puff by inhalation route 2 times every day in the morning and evening 2.00 puff - Active Procedures Procedure Date Community Health Worker Patient Face To Face Bitewings Four Films Periodic Oral Eval Est Patient - Adult Medicaid Caries Moderate Risk Exempt From Sealant Measure Prophylaxis Adult Limited Oral Evaluation Problem Focused Intraoral Periapical First Film NON-STRESS TEST OB US LIMITED FETUS(S) - Global 023 OFFICE/OUTPATIENT VISIT, EST DRUG SCREEN NON-STRESS TEST OB US LIMITED FETUS(S) - Global 023 OFFICE/OUTPATIENT VISIT, EST GLUCOSE TEST ROUTINE VENIPUNCTURE DRUG SCREEN OB US LIMITED FETUS(S) - 022 NON-STRESS TEST DRUG SCREEN OFFICE/OUTPATIENT VISIT, EST OB US FOLLOW-UP PER FETUS - NON-STRESS TEST OFFICE/OUTPATIENT VISIT, EST DRUG SCREEN CULT, (U) ROUTINE OFFICE/OUTPATIENT VISIT, EST COMPLETE CBC W/AUTO DIFF WBC ROUTINE VENIPUNCTURE DRUG SCREEN CHLAMYDIA/GONNORRHEA TRICHOMONAS VAGINALIS AMPLIF CULTURE AEROBIC IDENTIFY STREP B DNA AMP PROBE OFFICE/OUTPATIENT VISIT, EST DRUG SCREEN Resin-Based Composite Two Surfaces, Posterior Resin-Based Composite Three Surfaces, Posterior Resin-Based Composite Three Surfaces, Anterior Resin-Based Composite Three Surfaces, Anterior Resin-Based Composite Three Surfaces, Anterior OFFICE/OUTPATIENT VISIT, EST DRUG SCREEN OB US FOLLOW-UP PER FETUS - IMMUNIZATION ADMIN TDAP VACCINE >7 IM OFFICE/OUTPATIENT VISIT EST COMPLETE CBC W/AUTO DIFF WBC GLUCOSE TEST ROUTINE VENIPUNCTURE RPR OFFICE/OUTPATIENT VISIT, EST IMMUNIZATION ADMIN FLU VAC NO PRSV 4 STONEY 6 Months+ 022 DRUG SCREEN Resin-Based Composite Four Or More Surfaces, Pos Resin-Based Composite Three Surfaces, Posterior Resin-Based Composite Three Surfaces, Posterior Resin-Based Composite Two Surfaces, Posterior Extraction, Erupted Tooth Or Exposed Paula t (Elevati Extraction, Erupted Tooth Or Exposed Paula t (Elevati PSYTX PT&/FAMILY 30 MINUTES OB US >/= 14 WKS SNGL FETUS - Global Jul OFFICE/OUTPATIENT VISIT, EST DRUG SCREEN URINALYSIS AUTO W/O SCOPE Intraoral Periapical Each Additional Film Intraoral Periapical Each Additional Film Intraoral Periapical Each Additional Film Intraoral Periapical Each Additional Film Panoramic Film Bitewings Four Films Comprehensive Oral Evaluatio n New Or Established Prophylaxis Adult OFFICE/OUTPATIENT VISIT, EST DRUG SCREEN URINALYSIS AUTO W/O SCOPE COMPLETE CBC W/AUTO DIFF WBC GLUCOSE TEST ROUTINE VENIPUNCTURE SEQUEN/INTEGRATE 2 OFFICE/OUTPATIENT VISIT, EST DRUG SCREEN URINALYSIS AUTO W/O SCOPE OB US NUCHAL TARYN 1 GEST - Global SEQUEN/INTEGRATE 1 OB US < 14 WKS SINGLE FETUS - Global Apr PROTEIN, TOTAL OFFICE/OUTPATIENT VISIT, NEW DRUG SCREEN URINALYSIS AUTO W/O SCOPE Infectious Agent DNA Or RNA CHLAMYDIA/GONNORRHEA TRICHOMONAS VAGINALIS AMPLIF HEPATITIS C AB TEST No Charge Lab Codes OBSTETRIC PANEL No Charge Lab Codes No Charge Lab Codes No Charge Lab Codes No Charge Lab Codes COMPREHEN METABOLIC PANEL ROUTINE VENIPUNCTURE No Charge Lab Codes Patient Left / No Show Patient Left / No Show DRUG SCREEN URINALYSIS AUTO W/O SCOPE CULT, (U) ROUTINE NO CHARGE URINE TEST Advance Directives Directive Yes / No Effective Date File Name No Information Encounters Encounter Description Practice Location Reason(s) For Visit Diagnoses Date Provider Providers Copied on Encounter [facility], [id number] [place], [address], [place] tel:[phone] Family Medicine F1 No Information 3 Coordinator Care. [address], [place], [address], [place]. tel:[phone] [facility], [id number] [id number], [address], [place] tel:[phone] [facility] No Information 3 Coordinator Care. [address], [place], [address], [place]. tel:[phone] Referring Provider: Abraham arellano, [address] [place], [address] . tel:[phone] [facility], [address] Hszcs[address]J4 9239685[place], [address], [place] tel:[phone] [facility] Encounter for dental exam and cleaning w/o abnormal findings 3 Kranthi Flannery. [address] [place], [address], [place]. tel:[phone] Referring Provider: Prudencio Crisostomo, [address] [place], [address]. tel:[phone] [facility], [id number] [id number], [address], [place] tel:[phone] [facility] Encounter for dental exam and cleaning w/o abnormal findings 3 Jane Koenig. [address], [place], [address], [place]. tel:[phone] Referring Provider: Arya Nino, [address] [place], [address] . tel:[phone] OFFICE/OUTPA TIENT VISIT, [facility], [id number] 6835236BD[place], [address], [place] tel:[phone] [facility] routine (chief complaint) High-risk in third trimesterSeizu re disorder during , antepartumObes ity in pregnancyDrug use complicating , third trimester 3 Pk Cage. [address], [place], [address], [place]. tel:[phone] Referring Provider: Niles Johnson, [address] [place], [address] . tel:[phone] OFFICE/OUTPA TIENT VISIT, [facility], [address] Metjd[address]D8 [id number], [place], [address], [place] tel:[phone] [facility] routine (chief complaint) High-risk in third trimesterHydra mnios, third trimester, fetus 1Seizure disorder during , antepartumObes ity in pregnancyDrug use complicating , third trimesterObesi ty complicating , third trimesterSuper vision of other high risk pregnancies, third trimesterDrug use complicating , second trimester 3 Pk Cage. [address], [place], [address], [place]. tel:[phone] Referring Provider: Niles Johnson, [address] [place], [address] . tel:[phone] OFFICE/OUTPA TIENT VISIT, [facility], [address]tyfa[address] 6339073YLLone [place], [address], [place] tel:[phone] [place] [address] routine (chief complaint) Supervision of other high risk pregnancies, first trimesterSeizu re disorder during , antepartumObes ity complicating , third trimesterHydra mnios, third trimester, fetus 1Drug use complicating , second trimester 2 Pk Cage. [address], [place], [address], [place]. tel:[phone] Referring Provider: Niles Johnson, [address] [place], [address] . tel:[phone] OFFICE/OUTPA TIENT VISIT, [facility], [address] [id number] 2308653QUH[place], [address], [place] tel:[phone] [place] [address] routine (chief complaint) High-risk in third trimesterSeizu re disorder during , antepartumObes ity in pregnancyDrug use complicating , third trimesterSuper vision of other high risk pregnancies, third trimester 2 Pk Cage. [address], [place], [address], [place]. tel:[phone] Referring Provider: Niles Johnson, [address] [place], [address] . tel:[phone] OFFICE/OUTPA TIENT VISIT, [facility], [address] [id number] 7615897NZL[place], [address], [place] tel:[phone] [place] [address] routine (chief complaint) High-risk in third trimesterSeizu re disorder during , antepartumObes ity in pregnancyDrug use complicating , third trimester 2 Pk Cage. [address], [place], [address], [place]. tel:[phone] Referring Provider: Niles Johnson, [address] [place], [address] . tel:[phone] OFFICE/OUTPA TIENT VISIT, [facility], [address] [id number] [id number] [place], [place], [address], [place] tel:[phone] [place] [address] routine (chief complaint) High-risk in third trimesterSeizu re disorder during , antepartumObes ity in pregnancyDrug use complicating , third trimesterDrug use complicating , second trimester 2 Pk Cage. [address], [place], [address], [place]. tel:[phone] Referring Provider: Niles Johnson, [address] [place], [address] . tel:[phone] [facility], [id number] 3118122YVLone [place], [address], [place] tel:[phone] [place] [address] No Information 2 Lyndsey Harrison. [address], [place], [address], [place]. tel:[phone] Referring Provider: Christy Solorio, [address] [place], [address] . tel:[phone] [facility], [address] [id number] 1224570UI- [place], [address], [place] tel:[phone] Dental [place] [address] No Information 2 Lyndsey Harrison. [address], [place], [address], [place]. tel:[phone] Referring Provider: Christy Solorio, [address] [place], [address] . tel:[phone] OFFICE/OUTPA TIENT VISIT, [facility], [address] [id number] 6239285ONLone [place], [place], [address], [place] tel:[phone] [place] [address] routine (chief complaint) High-risk in third trimesterObesi ty in pregnancySeizu re disorder during , antepartumVape s nicotine containing substanceDrug use complicating , third trimester 2 Pk Cage. [address], [place], [address], [place]. tel:[phone] Referring Provider: Niles Johnson, [address] [place], [address] . tel:[phone] [facility], [address] Oezmn987T7 3353535IXLone [place], [address], [place] tel:[phone] [place] [address] No Information 2 Pk Cage. [address] [place], [place], [address], [place]. tel:[phone] Referring Provider: Niles Johnson, [address] [place], [address] . tel:[phone] OFFICE/OUTPA TIENT VISIT [facility], [address] Mmjgs880J0 3625584YYLone [place], [place], [address], [place] tel:[phone] [place] [address] routine (chief complaint) Vapes nicotine containing substanceSeizu re disorder during , antepartumEnco unter for immunizationOb esity in pregnancySuper vision of high risk , unsp, second trimester 2 Pk Cage. [address] [place], [place], [address], [place]. tel:[phone] Referring Provider: Niles Johnson, [address] [place], [address] . tel:[phone] OFFICE/OUTPA TIENT VISIT, EST [facility], [address] [id number] 6763491DC- [place], [address], [place] tel:[phone] [place] [address] routine (chief complaint) High-risk in second trimesterSeizu re disorder during , antepartumEnco unter for immunization 2 Pk Cage. [address], [place], [address], [place]. tel:[phone] Referring Provider: Niles Johnson, [address] [place], [address] . tel:[phone] [facility], [address] [id number] 8042982KPHampden, [place], [address], [place] tel:[phone] [facility] [place] [address] No Information 2 Lyndsey Harrison. [address], [place], [address], [place]. tel:[phone] Referring Provider: Christy Solorio, [address] [place], [address] . tel:[phone] [facility], [address] Nsacc243Y1 2980498NZHampden, [place], [address], [place] tel:[phone] [facility] [place] [address] No Information Jul- 2 Lyndsey Harrison. [address], [place], [address], [place]. tel:[phone] Referring Provider: Christy Solorio, [address] [place], [address] . tel:[phone] [facility], [address] [id number]- [facility], [place], [place], [address], [place] tel:[phone] [facility] [place] [address] No Information Sep-2 2 Lyndsey Harrison. [address], [place], [address], [place]. tel:[phone] Referring Provider: Christy Solorio, [address] [place], [address] . tel:[phone] PSYTX PT&/FAMILY 30 MINUTES [facility], [address] [id number]- [place], [address], [place] tel:[phone] [facility] Sep- 2 Paradise Tirado. [address], [place], [address], [place]. [phone] Referring Provider: Candida Ghotra, [address] [place], [address] . tel:[phone] OFFICE/OUTPA TIENT VISIT, EST [facility], [address] Wthuq435T6 7523266FX- [place], [place], [address], [place] tel:[phone] [place] [address] routine (chief complaint) Encounter for screening for malformationsO besity complicating , second trimesterHigh- risk in second trimesterSeizu re disorder during , antepartumDrug use complicating , second trimesterSuper vision of other high risk pregnancies, second trimester Sep- 2 Pk Cage. [address] [place], [place], [address], [place]. tel:[phone] Referring Provider: Niles Johnson, [address] [place], [address] . tel:[phone] [facility], [address]fzqs095P6 5675495PQHampden, [place], [address], [place] tel:[phone] [facility] [place] [address] No Information 2 Lyndsey Harrison. [address] [place], [place], [address], [place]. tel:[phone] Referring Provider: Christy Solorio, [address] [place], [address] . tel:[phone] OFFICE/OUTPA TIENT VISIT, [facility], [address] Iejuq934H7 7348252TVHampden, [place], [address], [place] tel:[phone] [place] [address] (chief complaint) High-risk in second trimesterObesi ty in pregnancySeizu re disorder during , antepartumVape s nicotine containing substanceDrug use complicating , second trimesterSuper vision of other high risk pregnancies, second trimester 2 Pk Cage. [address] [place], [place], [address], [place]. tel:[phone] Referring Provider: Niles Johnson, [address] [place], [address] . tel:[phone] OFFICE/OUTPA TIENT VISIT, [facility], [address] Vgrty938C9 1306716MQHampden, [place], [address], [place] tel:[phone] [place] [address] routine (chief complaint) High-risk in second trimesterObesi ty in pregnancyVapes nicotine containing substanceSeizu re disorder during , antepartumEpil epsy, unspecified, not intractable, without status epilepticusSei zure disorder during , antepartumDrug use complicating , second trimesterSuper vision of other high risk pregnancies, second trimester 2 Pk Cage. [address] [place], [place], [address], [place]. tel:[phone] Referring Provider: Niles Johnson, [address] [place], [address] . tel:[phone] [facility], [address] [id number] 9320176US- [place], [place], [address], [place] tel:[phone] [place] [address] Encounter for screening for chromosomal anomalies 2 Jane Tejada. [address] [place], [address], [place]. tel:[phone] Referring Provider: Mallory Lara, [address] [place], [address]. tel:[phone] [facility], [address] Zstui312D3 6763277FB- [place], [place], [address], [place] tel:[phone] [place] [address] Supervision of other high risk pregnancies, first trimesterEncnt r screen for infections w sexl mode of transmiss 2 Jane Tejada. [address] [place], [address], [place]. tel:[phone] Referring Provider: Mallory Lara, [address] [place], [address]. tel:[phone] OFFICE/OUTPA TIENT VISIT, [facility], [address] [id number] 9997167AQ- [place], [place], [address], [place] tel:[phone] [place] [address] (chief complaint) AnxietyVapes nicotine containing substanceEncou nter for STD screeningSuper vision of other high risk pregnancies, first trimesterEleva elías blood pressure reading without diagnosis of hypertensionNa usea vomiting and diarrheaDiarrh ea, unspecifiedHis tory of epilepsyBMI 36.0-36.9,adul tObesity in pregnancyEncnt r for sugar cane grower exam (general) (routine) w/o abn findingsIrregu lar mensesEncounte r for screening for nuchal translucencyEn counter for suprvsn of normal , first trimester 2 Jane Tejada. [address] [place], [address], [place]. tel:[phone] Referring Provider: Mallory Lara, [address] [place], [address]. tel:[phone] [facility], [address] Elewy271X8 [id number]- [place], [address], [place] tel:[phone] [place] [address] No Information Apr-0 2 Lyndsey Harrison. [address], [place], [address], [place]. tel:[phone] Referring Provider: Christy Solorio, [address] [place], [address] . tel:[phone] [facility], [address] Oveyv692R5 5395627CHHampden, [place], [address], [place] tel:[phone] [place] [address] Encounter for screening, unspecifiedEnc ounter for suprvsn of normal , first trimester Keyon-0 2 Laravaishnavi Tejada. [address] [place], [address], [place]. tel:[phone] Referring Provider: Mallory Lara, [address] [place], [address]. tel:[phone] [facility], [address] [id number] 0669915EZ- [place], [place], [address], [place] tel:[phone] [place] [address] No Information Apr-0 2 Omkar Bruce. [address], [place], [address], [place]. tel:[phone] Referring Provider: Janis Espitia, [address] [place], [address] . tel:[phone] [facility], [address] Hfidd575S3 7225524KDHampden, [place], [address], [place] tel:[phone] [facility] F1 Encounter for test, result unknown Jane Tejada. [address] [place], [address], [place]. tel:[phone] Referring Provider: Mallory Lara, [address] [place], [address]. tel:[phone] As per patient privacy policy some of the clinical information may not be visible. Family History Family Member Type Diagnosis Age At Onset Maternal grandmother Problem COPD Mother Problem asthma Immunizations Vaccine Date Status Comments Tdap (7 yrs and older) administered Note: Pt showed no reaction in clinic. VIS dated 06/13/21 given. [facility] 81176-531-92 ; Source: New Immunization Record Flu Vaccine 6 Months and older administered Note: [facility]: [id number] Given using aseptic technique, needle withdrawn intact. Pt tolerated well & no adverse s/e noted in clinic. VIS dated 06/13/21 given to pt. ; Source: New Immunization Record Payers Payer name Insurance type Covered democrat ID Authortommya rikkigraham(s) M [employer] Plan CI [id number] M [employer] Plan CI [id number] Social History Type Description Quantity Date Captured Comments Sex Female Smoking Status No Information Sexual Orientation Heterosexual Gender Identity Female Chief Complaint And Reason For Visit No Information Reason For Referral Reason For Referral No Information Plan Of Treatment Date Type Action Status Goal Tobacco cessation counseling completed Future Order: Lab Order GTT 1 Hr Screen ([id number]), Sent on: Sent Future Order: Radiology Order OB US, Follow-UP, Per Fetus ([id number]), Ordered on: Ordered Future Order: Radiology Order OB US, Limited, Fetus (S) ([id number]), Ordered on: Ordered Future Order: Radiology Order OB US, Follow-UP, Per Fetus ([id number]), Ordered on: Ordered Future Order: Radiology Order OB US, Follow-UP, Per Fetus ([id number]), Ordered on: Ordered Future Order: Lab Order CBC With Differential/Platelet ([id number]), Sent on: Sent Future Order: Lab Order GTT 1 Hr Screen ([id number]), Sent on: Sent Future Order: Lab Order RPR W/ R eflex ([id number]), Sent on: Sent Future Order: Lab Order CBC With Differential/Platelet ([id number]), Sent on: Sent Future Order: Radiology Order OB US Nuchal Taryn, 1 Gest ([id number]), Ordered on: Ordered Future Order: Radiology Order OB US < 14 Wks, Single Fetus ([id number]), Ordered on: Ordered Future Order: Lab Order Preg. Ur ine Qual ([id number]), Sent on: Sent History Of Present Illness Encounter Date Complaint History Of Prese nt Illness routine routine routine patient denies ABN discharge, bleeding cramping, reports + FM, states she is having hip and pelvic pains, no other concerns at this time. RS routine NST by Donte . Pt reports FM+. No concerns. km wants to checked routine pt states had a fall on 10/17/22. denies abn bleeding cramping discharge. reports good FM. no concerns.AFF routine denies abn blee ding cramping discharge. reports good FM. no concerns.AFF routine denies abn blee ding cramping discharge. reports good FM. no concerns.AFF routine Pt denies bleed ing.+ movement.No concerns or questions. RK routine routine Pt denies bleed ing.+ movement.No concerns or questions. RK LMP was 02/09/20. Pertinent negatives include bleeding, constipation, edema, fever, headache, nausea, spotting, vomiting. Additional information: Denies cramping, no questions or concerns. LO. routine Pt denies bleed ing.Pt c/o severe headache after her seizure this morning at 7/10 pain.No other concerns. RK LMP was 02/09/20. Client was not taking control pills at or around the time of her LMP. Context: confirmed by lab test on 04/14/2022. Lab: [facility]. This is first . Symptoms are aggravated by eating, stress, sex, smells, smoking, vitamins. The client denies relieving factors. Associated symptoms include breast tenderness, fatigue, heartburn, irritability, nausea, vomiting. Pertinent negatives include anorexia, bleeding, constipation, edema, fever, headache, pelvic pain, spotting, urinary difficulty, vaginal discharge. Additional information: LMP 02/08/2022. Pt states she is having extreme nausea and vomiting. Pt states she has not been able to keep anything down for the past two days. No other questions or concerns. vinayak. Functional Status Date Functional Assessmen t No Information Instructions Date Instruction Additional Infor mook Lifestyle education Related to D ental Examination continue with care. Rel ated to Supervision of other high risk pregnancies, first trimester toxoplasmosis precau tions (cats / raw meat) sexual activity exercise indications for ultrasound influenza vaccine environmental / work hazards travel tobacco (ask, advise , assess, assist and arrange) alcohol illicit / recreational drugs use of any medicatio ns (including supplements, vitamins, herbs, OTC drugs) smoking counseling domestic violence seat belt use childbirth classes / hospital facilities Genetic Testing Book Vitamins nutrition and weight gain counseling, special diet risk factors identif ied by history HIV and other routine t ests anticipated course of c are Assessments Type Assessment Date No Information Patient Care Teams Name Effective Dates (start - stop) Status Members No Information
[2025-07-07] VITALS (17 sets, daily range): BP systolic 103–143; BP diastolic 50–82; PULSE 95–121; RESP 16–22; TEMP 36.7–38; O2SAT 90–99; BMI 29.0; BMI 27.9
--- OUTSIDE RECORDS SUMMARY | 2025-07-07 03:34 | XMS_ITS | Encounter Summary ---
Author Organization [facility] Address [address] [place] [address] Care Team Providers Care Retirement Consultant Name Role Phone Glendy Martínez MD Primary Care Provider [phone] Reason for Visit * Reason Onset Date Comments Medication Refill 07/02/2025 Encounter Details Date Type Department Care Team (Late st Contact Info) Description 07/02/2025 Refill [facility] [address] [place] [phone] Flaquita Birmingham PA [address] [place] [address] Seizure disorder (CMS/HCC) (Primary Dx) Social History Tobacco Use Types Packs/Day Years Used Date Smoking Tobacco: Never Passive Smoke Exposure: Yes Smokeless Tobacco: Never Comments:Quit smoking: paren ts smoke in home Alcohol Use Standard Drinks/Week Comments No 0 (1 standard drink = 0.6 oz pur e alcohol) Feeling Safe Answer Date Recorded Are you in a relationship wi th someone who hurts you emotionally and/or physically? 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 [place] [address] Glendy Martínez MD [address] [place] [address] 07/20/2025 11:30 AM CDT Office Visit [facility] [address] [address] Nancy Reed MD [address] [address] documented as of this encounter Visit Diagnoses Diagnosis Seizure disorder (CMS/[facility])- Primary Unspecified epilepsy without mention of intractable epilepsy documented in this encounter Care Teams Retirement Consultant Relationship Specialty Start Date End Date Glendy Martínez MD [address] [place] [address] PCP - General Family Practice 05/29/25 documented as of this encounter
--- OUTSIDE RECORDS SUMMARY | 2025-07-07 03:34 | XMS_ITS | Encounter Summary ---
Author Organization [facility] Address [address] [place] [address] Care Team Providers Care Gambling Counsellor Name Role Phone Glendy Martínez MD Primary Care Provider [phone]- [phone] Encounter Details Date Type Department Care Team (Latest Contact Info) Description 07/04/2025 Results Follow-Up [facility] Medicine-[facility] [address] [place] [address] Flaquita Cantrell, MIGUEL [address] [place] [address] LACOSAMIDE LEVEL, LAMOTRIGINE LEVEL, OXCARBAZEPINE LEVEL, LEVETIRACETAM LEVEL Social History Tobacco Use Types Packs/Day Years [...] on file Legal Sex Female 4:53 AM DECISION ANALYST Gender Identity Not on file Sexual Orientation Not on file documented as of this encounter Miscellaneous Notes * Telephone Encounter - Farzana Ervin RN - 07/04/2025 2:20 PM CDT 07/04/2025 2:20 PM Called and notified patient of Allisons recommendations. New orders placed. Questions answered to their satisfaction. Teach-back method used to ensure understanding. Voiced understanding. Dale RN * Telephone Encounter - Farzana Ervin RN - 07/04/2025 2:08 PM CDT ----- Message from Flaquita Cantrell sent at 07/04/2025 8:05 AM CDT ----- For some reason the lab was not able to do all of the drug levels that we had asked him to do can we reorder those tests and have her come in for repeat lab work. I do not really want to make any changes until I know what all the labs look like. She does have an appointment with the neurology department on 20 July it looks like ----- Message ----- From: Pranav Landa Incoming [facility] Results Sent: 06/02/2025 11:04 AM CDT To: Flaquita Cantrell NP documented in this encounter Plan of Treatment Upcoming Encounters Date Type Department Care Team (Late st Contact Info) Description 07/13/2025 11:30 AM CDT [facility] [address] [place] [address] Glendy Martínez MD [address] [place] [address] 07/20/2025 11:30 AM CDT Office Visit [facility] Neurology - [place] [address] [place] [phone] Nancy Reed MD [address] [place] [address] Scheduled Orders Name Type Priority Associated Diagnoses Orde r Schedule LEVETIRACETAM LEVEL Lab Routine Seizure disorder Expected: 07/04/2025, Expires: 07/04/2026 OXCARBAZEPINE LEVEL Lab Routine Seizure disorder Expected: 07/04/2025, Expires: 07/04/2026 LAMOTRIGINE LEVEL Lab Routine Seizure disorder Expected: 07/04/2025, Expires: 07/04/2026 LACOSAMIDE LEVEL Lab Routine Seizure disorder Expected: 07/04/2025, Expires: 07/04/2026 documented as of this encounter Visit Diagnoses Diagnosis Seizure disorder- Primary Unspecified epilepsy without mention of intractable epilepsy documented in this encounter Care Teams Gambling Counsellor Relationship Specialty Start Date End Date Glendy Martínez MD [address] [place] [address] PCP - General Family Practice 05/29/25 documented as of this encounter
--- OUTSIDE RECORDS SUMMARY | 2025-07-07 03:34 | XMS_ITS | Clinical Summary ---
Author Organization [facility] Address [address] [place] [address] Phone Care Team Providers Care Golf Coach Name Role Phone Glendy Martínez MD Primary Care Provider [phone]- [phone] Allergies No known active allergies Medications ibuprofen (MOTRIN) 800 mg tablet Take 800 mg by mouth every 6 hours as needed for Pain, Mild (Migraine). 7 Active lamoTRIgine (LaMICtal) 25 mg tablet SEE ATACHED DIRECTIONS 5 Active levETIRAcetam (KEPPRA) 750 mg TabletIndicati ons:Seizure disorder (CMS/HCC) Take 2 Tablets (1,500 mg) by mouth 2 times daily. 120 Tablet 3 5 Active OXcarbazepine (TRILEPTAL) 300 mg tabletIndicati ons:Seizure disorder (CMS/HCC) Take 1 Tablet (300 mg) by mouth 2 times daily. 60 Tablet 2 5 08/27/20 25 Active lacosamide (Vimpat) 150 mg tabletIndicati ons:Seizure disorder (CMS/HCC) Take 1 Tablet (150 mg) by mouth 2 times daily. 60 Tablet 1 5 Active lacosamide (Vimpat) 150 mg tablet Take 1 Tablet (150 mg) by mouth 2 times daily. 60 Tablet 2 5 07/02/20 25 Discontinu ed(Reorder ) Active Problems Problem Noted Date Diagnosed Date Drinks alcohol 03/31/2025 Marijuana use 03/31/2025 Electronic cigarette use 03/31/2025 UTI (urinary tract infection) 03/31/2025 Metabolic acidosis 03/31/2025 Breakthrough seizure 03/30/2025 Aspiration into respiratory tract 03/04/2021 Haemophilus influenzae pneumonia 11/07/2020 Acute respiratory failure with hypoxia and hyper capnia 12/06/2019 Status epilepticus 12/06/2019 Leukocytosis (leucocytosis) 12/06/2019 Second hand tobacco smoke exposure 07/16/2017 Nonintractable headache 07/15/2017 Seizure disorder 07/15/2017 Overview (04/23/2021): With breakthrough seizures Assessment & Plan (05/29/2025 3:38 PM CDT): Stable. Mild intermittent asthma 07/15/2017 Assessment & Plan (05/29/2025 3:40 PM CDT): Stable Non-intractable vomiting with nausea 07/15/2017 Allergic rhinitis, cause unspecified 02/19/2012 Hypoxia 02/19/2012 Status asthmaticus 02/19/2012 Respiratory distress 02/19/2012 Encounters Date Type Department Care Team Description 07/04/2025 Results Follow-Up [facility] Family Medicine-[facility] [address] [place] [address] Flaquita Cantrell NP LACOSAMIDE LEVEL, LAMOTRIGINE LEVEL, OXCARBAZEPINE LEVEL, LEVETIRACETAM LEVEL 07/02/2025 Refill [facility] Neurology - [place] [address] [place] [address] Flaquita Birmingham PA Seizure disorder (CMS/[facility]) (Primary Dx) 06/27/2025 External Device Data STL ABSTRACTION Provider, Abstract 06/26/2025 External Device Data STL ABSTRACTION Provider, Abstract 06/18/[address] [facility] Hris Developer Management [address] [facility] [address] [place] [address] Sil Dumas LCSW Ambulatory Social Work (Help in her home) 06/13/2025 External Device Data STL ABSTRACTION Provider, Abstract 06/12/2025 External Device Data STL ABSTRACTION Provider, Abstract 06/05/2025 External Device Data STL ABSTRACTION Provider, Abstract 05/29/2025 3:30 PM CDT Office Visit [facility] Family Medicine[facility] [address] [place] [address] Flaquita Cantrell NP Encounter to establish care (Primary Dx); Seizure disorder; Acute respiratory failure with hypoxia and hypercapnia (CMS/HCC); Mild intermittent asthma, unspecified whether complicated 05/08/2025 External Device Data STL ABSTRACTION Provider, Abstract 05/01/2025 External Device Data STL ABSTRACTION Provider, Abstract 05/01/2025 External Device Data STL ABSTRACTION Provider, Abstract 05/01/2025 External Device Data STL ABSTRACTION Provider, Abstract 04/30/2025 1:30 PM CDT Office Visit [facility] Neurology [address] [address] Flaquita Birmingham PA Seizure disorder (CMS/HCC) (Primary Dx); Therapeutic drug monitoring; Anxiety and depression; PTSD (post-traumatic stress disorder); Tremor from Last 3 Months Family History Medical History Relation Name Comments Healthy Father Healthy Mother Relation Name Status Comments Father Mother Social History Tobacco Use Types Packs/Day Years Used Date Smoking Tobacco: Never Passive Smoke Exposure: Yes Smokeless Tobacco: Never Tobacco Cessation:Counseling Given: Not Answered Comments:Quit smoking: parents smoke in home Alcohol Use Standard Drinks/Week [...] on file 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 Gender Identity Not on file Sexual Orientation Not on file Last Filed Vital Signs Vital Sign Reading Time Taken Comments Blood Pressure 118/82 05/29/2025 3:20 PM CDT Pulse 103 05/29/2025 3:20 PM CDT Temperature 37.5 C (99.5 F) 05/29/2025 3:20 PM CDT Respiratory Rate 13 05/29/2025 3:20 PM CDT Oxygen Saturation 96% 05/29/2025 3:20 PM CDT Inhaled Oxygen Concentration - - Weight 69.9 kg (154 lb) 05/29/2025 3:20 PM CDT Height 166.4 cm (5' 5.5 ) 05/29/2025 3:20 PM CDT Body Mass Index 25.24 05/29/2025 3:20 PM CDT Plan of Treatment Upcoming Encounters Date Type Department Care Team (Late st Contact Info) Description 07/13/2025 11:30 AM CDT [facility] [address] [place] [address] Glendy Martínez MD [address] [place] [address] 07/20/2025 11:30 AM CDT Office Visit [facility] Neurology [facility] [address] [facility] [address] [place] [address] Nancy Reed MD [address] [facility] [address] [place] [address] Health Maintenance Due Date Last Done Comments CHLAMYDIA SCREENING (ANNUAL) 11-24 YEARS 2012 HPV VACCINES (2 - 2-dose series) 02/15/2015 08/17/20 14 HEPATITIS B VACCINES (1 of 3 - 19+ 3-dose series) 2020 Preventative Visit-Managed Medicaid 2020 CERVICAL CANCER SCREENING 2022 HPV/Cotest (21-29) 2022 PAP SMEAR 2022 INFLUENZA VACCINE (#1) 2025 2, 08/18/2022, 08/09/2015 DTAP/TDAP/TD VACCINES (4 - T d or Tdap) 09/01/2032 09/01/2022, 02/11/2015, 06/20/2007 Procedures Procedure Name Priority Date/Time Associated Diagnosis Comments LEVETIRACETAM LEVEL Routine 05/29/2025 4 :08 PM CDT Seizure disorder OXCARBAZEPINE LEVEL Routine 05/29/2025 4 :08 PM CDT Seizure disorder LAMOTRIGINE LEVEL Routine 05/29/2025 4:0 8 PM CDT Seizure disorder LACOSAMIDE LEVEL Routine 05/29/2025 4:08 PM CDT Seizure disorder from Last 3 Months Results * LACOSAMIDE LEVEL (05/29/2025 4:08 PM CDT) LACOSAMIDE TNP mcg/mL [facility] Comment: TEST NOT PERFORMED Due to unexpected system failure, we were unable to perform the requested testing. Test Performed at: [facility] [address] [facility] [place] [address] Víctor Miner MD,PhD Blood 05/29/2025 4:08 PM CDT 05/30/2025 5:08 AM CDT Flaquita Cantrell NP CHEMISTRY ORDERABLES Fin al Result [facility] [phone] [facility] [address] [facility] [address] [place] [address] * OXCARBAZEPINE LEVEL (05/29/2025 4:08 PM CDT) 10 HYDROXYCARBAZEPINE 11.0 8.0 - 35.0 mcg/mL [facility] Comment: Test Performed at: [facility] [address] [facility] GATO [place] Fan Ruvalcaba M.D.,PhD Blood 05/29/2025 4:08 PM CDT 05/30/2025 5:08 AM CDT Flaquita Cantrell MAINTENANCE SERVICES DISPATCHER CHEMISTRY ORDERABLES Fin al Result [facility] [phone] [facility] [address] [facility] [address] [place] * LEVETIRACETAM LEVEL (05/29/2025 4:08 PM CDT) LEVETIRACETAM LEVEL TNP mcg/mL [facility] Comment: TEST NOT PERFORMED. Quantity not sufficient. Test Performed at: [facility] [address] [place] [address] Tori Ocasio MD Blood 05/29/2025 4:08 PM CDT 05/30/2025 5:08 AM CDT Flaquita Cantrell MAINTENANCE SERVICES DISPATCHER CHEMISTRY ORDERABLES Fin al Result Performing Organization Address [facility] Co de Phone Number [facility] [phone] [facility] [address] [place] [address] * (ABNORMAL) LAMOTRIGINE LEVEL (05/29/2025 4:08 PM CDT) LAMOTRIGINE LEVEL 1.2(L) 2.5 - 15.0 mcg/mL [facility] Comment: (Note) This test was developed and its analytical performance characteristics have been determined by [facility]. It has not been cleared or approved by the FDA. This assay has been validated pursuant to the CLIA regulations and is used for clinical purposes. [facility] [address] [place] [address],[address] [facility] [address] Víctor Miner MD, PhD Test Performed at: [facility] [address] [place] [address], [address] [place] [address] Víctor Miner MD,PhD Blood 05/29/2025 4:08 PM CDT 05/30/2025 5:08 AM CDT Flaquita Cantrell MAINTENANCE SERVICES DISPATCHER CHEMISTRY ORDERABLES Fin al Result [facility] [phone] [facility] [address] [place] [address], [address] [place] [address] from Last 3 Months Insurance MEDICAID [place] Advance Directives For more information, please contact: [phone] * Full Code (Latest Code Status on File) Date Activated Date Inactivated Comments 03/30/2025 9:46 PM 04/02/2025 2:17 PM Care Teams Golf Coach Relationship Specialty Start Date End Date Glendy Martínez MD [address] [place] [address] PCP - General Family Practice 05/29/25
--- OUTSIDE RECORDS SUMMARY | 2025-07-07 03:35 | XMS_ITS | Encounter Summary ---
Author Organization [facility] Address [address] [place] [address] Care Team Providers Care Customer Order Clerk Name Role Phone Ulisses Ferguson TWILA Primary Care Provider [phone] Reason for Visit * Reason Comments Office Visit: Converted Data Conversion Encounter Details Date Type Department Care Team (Late st Contact Info) Description 05/16/2024 Dental Interim Note [facility] [address] [place] [address] Default, Jvc Provider [place] Social History Tobacco Use Types Packs/Day Years Used Date Smoking Tobacco: Never Assessed Social Connections Answer Date Recorded Social Connections and Isolation 0 03/01/2024 Financial Resource Strain Answer Date R ecorded Financial Resource Strain 0 2023 Stress Answer Date Recorded Stress 0 03/01/2024 Physical Activity Answer Date Recorded Physical Activity 0 03/01/2024 Food Insecurity Answer Date Recorded Food 0 03/01/2024 Transportation Needs Answer Date Record ed Transportation 0 03/01/2024 Housing Stability Answer Date Recorded Housing 0 03/01/2024 Safety and Environment Answer Date Kit rded Safety 0 03/01/2024 Utilities Answer Date Recorded Utilities 0 03/01/2024 Employment Answer Date Recorded Employment 0 03/01/2024 Comments Unknown Sex and Gender Information Value Date Recorded Sex Assigned at Female 08/02/2024 5:30 AM PDT Legal Sex Female 5:52 PM PDT Gender Identity Female 04/28/2024 5:09 PM PDT Sexual Orientation Straight 04/28/2024 5: 09 PM PDT documented as of this encounter Plan of Treatment Scheduled Orders Name Type Priority Associated Diagnoses Order Schedule 18 18 CROWN - PORCELAIN/CERAMIC Dental Procedures Routine 1 Occurrence s starting 04/25/2024 18 18 ENDODONTIC THERAPY MOLAR TOOTH Dental Procedures Routine 1 Occurren aung starting 04/25/2024 18 MARKELL 18 MARKELL CORE BUILDUP INCLUDING ANY PINS WHEN REQUIRED Dental Procedures Routine 1 Occurrences starting 04/25/2024 9 9 ENDODONTIC THERAPY ANTERIOR TOOTH Dental Procedures Routine 1 Occurrences starting 04/25/2024 9 L 9 L RESIN-BASED COMPOSITE ONE SURFACE ANTERIOR Dental Procedures Routine 1 Occurrences starting 04/25/2024 10 10 ENDODONTIC THERAPY ANTERIOR TOOTH Dental Procedures Routine 1 Occurrences starting 04/25/2024 10 L 10 L RESIN-BASED COMPOSITE ONE SURFACE ANTERIOR Dental Procedures Routine 1 Occurrences starting 04/25/2024 1 1 EXTRACTION ERU TOOTH RQR REMV BONE &/SECTN TOOTH Dental Procedures Routine 1 Occurrences starting 04/25/2024 17 17 EXTRACTION ERU TOOTH RQR REMV BONE &/SECTN TOOTH Dental Procedures Routine 1 Occurrenc es starting 04/25/2024 18 MARKELL 18 MARKELL RESIN-BASED COMPOSITE - TWO SURFACES POSTERIOR Dental Procedures Routine 1 Occurrenc es starting 04/25/2024 19 MO 19 MO RESIN-BASED COMPOSITE - TWO SURFACES POSTERIOR Dental Procedures Routine 1 Occurrenc es starting 04/25/2024 20 DO 20 DO RESIN-BASED COMPOSITE - TWO SURFACES POSTERIOR Dental Procedures Routine 1 Occurrenc es starting 04/25/2024 31 O 31 O RESIN-BASED COMPOSITE - ONE SURFACE POSTERIOR Dental Procedures Routine 1 Occurrence s starting 04/25/2024 32 32 EXTRACTION ERU TOOTH RQR REMV BONE &/SECTN TOOTH Dental Procedures Routine 1 Occurrenc es starting 04/25/2024 documented as of this encounter Visit Diagnoses Not on filedocumented in this encounter Care Teams Customer Order Clerk Relationship Specialty Start Date End Date Ulisses Ferguson FNP [address] [place] [phone] PCP - General FRONTLOAD DRIVER Nurse Practitioner 04/03/25 documented as of this encounter
--- OUTSIDE RECORDS SUMMARY | 2025-07-07 03:35 | XMS_ITS | Clinical Summary ---
Author Organization [facility] Address [address] [place] [address] Care Team Providers Care Assistant Guest Services Manager Name Role Phone Ulisses Ferguson TRAFFIC OR SYSTEM DISPATCHER Primary Care Provider [phone] Source Comments PLEASE NOTE, if this patient is a minor, it may be UNLAWFUL to discuss sensitive information that is contained in these records (such as FAMILY PLANNING, MENTAL HEALTH or SUBSTANCE ABUSE) with the minor patient's parent or other person without the patient's specific authorization.[facility] Allergies No known active allergies Medications ondansetron ODT (ZOFRAN-ODT) 4 mg disintegrating tablet Take 1 Tablet by mouth every 12 hours TAKE 1 TABLET BY ORAL ROUTE EVERY [address] ON TOP OF THE TONGUE WHERE THEY WILL DISSOLVE, THEN SWALLOW 2 Active amoxicillin (AMOXIL) 500 mg capsule Take 1 Capsule by mouth every 6 (six) hours FIRST DOSE TAKE 2 CAPS THEN TAKE 1 CAPSULE BY ORAL ROUTE EVERY 6 HOURS 3 Active Active Problems Problem Noted Date Diagnosed Date Active dental caries 06/18/2022 High risk Polyhydramnios Immunizations Immunization Administration Dates Next Due Flu, Preservative Free 08/18/2022 TDAP 09/01/2022 Social History Tobacco Use Types Packs/Day Years Used Date Smoking Tobacco: Never Assessed Social Connections Answer Date Recorded Connectedness 0 07/24/2024 Financial Resource Strain Answer Date R ecorded Financial Resource Strain 0 2023 Stress Answer Date Recorded Stress 0 03/01/2024 Physical Activity Answer Date Recorded Physical Activity 0 03/01/2024 Food Insecurity Answer Date Recorded Food 0 08/03/2024 Transportation Needs Answer Date Record ed Transportation 0 03/01/2024 Housing Stability Answer Date Recorded Housing 0 03/01/2024 Safety and Environment Answer Date Kit rded Safety 0 03/01/2024 Utilities Answer Date Recorded Utilities 0 03/01/2024 Employment Answer Date Recorded Stress 0 07/24/2024 Comments Unknown Sex and Gender Information Value Date Recorded Sex Assigned at Female 08/02/2024 5:30 AM PDT Legal Sex Female 5:52 PM PDT Gender Identity Female 04/28/2024 5:09 PM PDT Sexual Orientation Straight 04/28/2024 5: 09 PM PDT Last Filed Vital Signs Vital Sign Reading Time Taken Comments Blood Pressure 115/77 08/02/2024 10:10 AM CDT Pulse 65 08/02/2024 10:10 AM CDT Temperature 36.8 C (98.2 F) 11/18/2022 2:27 PM CONVERTIBLE SOFA BEDSPRING TESTER Respiratory Rate 18 08/18/2022 11:1 5 AM CDT Oxygen Saturation 97% 08/18/2022 11: 15 AM CDT Inhaled Oxygen Concentration - - Weight 107.6 kg (237 lb 3.2 oz) 11/18/2022 2:27 PM CONVERTIBLE SOFA BEDSPRING TESTER Height 166.4 cm (5' 5.5 ) 11/18/2022 2:27 PM CONVERTIBLE SOFA BEDSPRING TESTER Body Mass Index 38.87 11/18/2022 2:27 PM CONVERTIBLE SOFA BEDSPRING TESTER Plan of Treatment Health Maintenance Due Date Last Done Comments Anxiety Screening 2001 HPV Screening 2001 Hepatitis C Screening 2001 LTBI Screening (#1) 2001 Pap + HPV 2001 Tobacco Screening 2001 Imm-HPV (2 - 2-dose series) 02/14/2015 08/16/2014 Imm-Hepatitis A (2 of 2 - Ri sk 2-dose series) 01/03/2016 07/03/2015 Relationship Safety Screening/Counseling 2016 Cervical Cancer Screening 2022 Pap Smear 2022 Chlamydia Screening 10/20/2023 10/20/2022, 2 Gonorrhea Screening 10/20/2023 10/20/2022, 2 [id number] () 07/09/2024 Alcohol and Drug Screen 11/08/2024 Depression Annual Screen 11/08/2024 11/18/2022 Imm-Influenza (#1) 2025 08/18/2022, 0 06/30/2020, 08/09/2015 Hypertension Screening (#1) 08/02/2027 Imm-DTaP/Tdap/Td (8 - Td or Tdap) 09/01/2032 09/01/2022, 07/03/2015, 02/11/2015, Additional history exists Imm-Hepatitis B Completed 06/26/2002, 02/2002, 2001 Imm-Varicella Completed 07/03/2015, 06/08, 11/20/2003 HIV Screening Completed 04/23/2022 Cervical Ablation/Cold-Knife Conization Discontinued Cervical Cryotherapy Discontinued Colposcopy Discontinued Endometrial Biopsy Discontinued Excision/Leep Discontinued HPV Genotyping Discontinued Vaginal Pap Discontinued Vulvoscopy Discontinued Procedures Procedure Name Priority Date/Time Associated Diagnosis Comments CT-GC-TV (CHLAMYD/GONOR/TRIC H) Routine 10/20/2022 4:05 PM CONVERTIBLE SOFA BEDSPRING TESTER HIV-1 / HIV-2 ANTIGEN / ANTIBODY COMBO Routine 04/23/2022 11:48 AM CDT from Last 3 Months or Most Recently Relevant to Health Maintenance Results * CT-GC-TV (CHLAMYD/GONOR/TRICH) (10/20/2022 4:05 PM CONVERTIBLE SOFA BEDSPRING TESTER) C. TRACHOMATIS RNA, TMA Not Detected Not Detected 10/20/2022 4:05 PM CONVERTIBLE SOFA BEDSPRING TESTER DATA CONVERSION TRICHOMONAS Not Detected Not Detected 10/20/2022 4:05 PM CONVERTIBLE SOFA BEDSPRING TESTER DATA CONVERSION N. GONORRHOEAE Not Detected Not Detected 10/20/2022 4:05 PM CONVERTIBLE SOFA BEDSPRING TESTER DATA CONVERSION COMMENT: Mora 10/20/2022 4:05 PM CONVERTIBLE SOFA BEDSPRING TESTER DATA CONVERSION 10/20/2022 4:05 PM CONVERTIBLE SOFA BEDSPRING TESTER [facility] Provider Default LAB BODY FLUIDS AND STOOL S AMBULATORY Final Result DATA CONVERSION * HIV-1 / HIV-2 ANTIGEN / ANTIBODY COMBO (04/23/2022 11:48 AM CDT) HIV-1-2 AG/AB Negative Negative 04/23/2022 11:48 AM CDT DATA CONVERSION 04/23/2022 11:4 8 AM CDT [facility] Provider Default LAB - BLOOD DRAW Final Re sult DATA CONVERSION from Last 3 Months or Most Recently Relevant to Health Maintenance [place] Care Teams Assistant Guest Services Manager Relationship Specialty Start Date End Date Ulisses Ferguson FNP [address] [place] [address] PCP - General DIRECTOR TALENT MANAGEMENT Nurse Practitioner 04/03/25
[2025-07-07] MEDS: LORazepam 2 mg/mL INJ 1 mL IVP (03:38)
--- NOTE | 2025-07-07 03:38 | W.ED.SEIZURE ---
Documented by User: Boris Moura DO 07/07/25 18:31 HPI - Seizure General: Chief Complaint: Seizure Stated Complaint: SEIZURE Time Seen by Provider: 07/07/25 03:34 History of Present Illness: HPI Narrative: 24-year-old female with history of seizure disorder had a seizure at home. She was postictal on EMS arrival. She seemed very confused, and was brought to the ER. On her arrival, she remains confused. She is not answering questions. No history of trauma. She did not hit her head. Unknown if the patient has been taking her medications or not. Seizure History: Yes Related Data Home Medications ?Medication ?Instructions ?Recorded ?Confirmed oxcarbazepine 300 mg tablet 300 mg PO BID 04/23/25 07/07/25 lacosamide 150 mg tablet (Vimpat) 150 mg PO BID 07/07/25 07/07/25 lamotrigine 25 mg tablet 100 mg PO BID 07/07/25 07/07/25 levetiracetam 750 mg tablet 1,500 mg PO BID 07/07/25 07/07/25 Previous Rx's ?Medication ?Instructions ?Recorded levetiracetam 750 mg tablet 1,500 mg (2 x 750 mg) PO DAILY see 07/07/25 pharmacy comment #60 tabs Allergies Allergy/AdvReac Type Severity Reaction Status Date / Time No Known Allergies Allergy Verified 04/23/25 14:59 PFSH ED PFSH: Medical History (Updated 07/07/25 @ 11:28 by Brown Guerrero DO) Anxiety Seizure Viral meningitis Seizure Surgical History History of repair of ACL Football injury Family History Denies family history of Hyperlipidemia Lung disease Hypertension Social History Smoking and tobacco/nicotine status: unknown if used tobacco/nicotine Alcohol intake: current Substance/Drug Use: current Household members: family Housing: Other Details: Currently living with her grandparents Current occupational status: employed Current occupation: She works at [employer] Physical Exam Const: GENERAL APPEARANCE: lethargic and ill appearing (mildly); not frail appearing ORIENTATION/CONSCIOUSNESS: Yes lethargic HENMT: COMMON NORMALS: normocephalic, atraumatic and Normal external nose present HEAD & SCALP: normocephalic and atraumatic FACE & SINUS: normal facial exam and face symmetric NOSE: Normal external nose present Eye: COMMON NORMALS: Equal, round and reactive pupils present and EOMs intact bilaterally PUPIL: Yes Equal, round and reactive pupils present Neck/C-Spine: GENERAL: Yes trachea midline Chest: CHEST: Yes Symmetrical chest wall rise Resp: COMMON NORMALS: normal respiratory effort, No retractions, No use of accessory muscles and clear to auscultation bilaterally AUSCULTATION: clear to auscultation bilaterally Cardio: COMMON NORMALS: regular rate and regular rhythm RATE: regular rate RHYTHM: regular rhythm GI: COMMON NORMALS: Normal to inspection, nondistended, normoactive bowel sounds present Extremity: COMMON NORMALS: no pedal edema Neuro: TONIA COMA SCALE: document GCS findings [place] coma scale eye opening: Spontaneous [place] coma scale verbal response: Confused [place] coma scale motor response: Localising [place]onia coma scale total score: 13 SENSORIUM/ORIENTATION: Yes lethargic SENSORY EXAM: Yes extremities (intact) Psych: COMMON NORMALS: speech normal SPEECH: Yes normal speech Skin: COMMON NORMALS: no rashes or lesions noted GENERAL SKIN EXAM: no rashes or lesions noted Course Vital Signs: Vital signs: Vital Signs Temperature 98.7 F 07/07/25 17:09 Pulse Rate 105 H 07/07/25 17:09 Respiratory Rate 18 07/07/25 17:09 Blood Pressure 128/71 07/07/25 17:09 Pulse Oximetry 94 07/07/25 17:09 Oxygen Delivery Me thod Room Air 07/07/25 17:09 MDM - Seizure MDM Narrative Medical decision making narrative: Vital signs are stable. The patient appears postictal. She is sleeping. She still confused. No episodes of tonic-clonic seizure after benzodiazepines were given. She was also given 1 g of levetiracetam. CBC and BMP are normal. Magnesium is only slightly low. CT head is negative. Her alcohol level is 20. This could be an alcohol withdrawal seizure. Her lactic acid is minimally elevated at 4.2 postseizure. She is going to get a liter of fluid. She will be checked out to the oncoming physician as she is not yet at baseline. Lab Data 07/07/25 03:46 07/07/25 03:46 Labs: Radiology Impressions Head CT 07/07/25 04:50 IMPRESSION: No acute intracranial abnormality. Chest X-Ray 07/07/25 07:30 IMPRESSION: No acute findings. Laboratory Results WBC 8.90 10^3/uL (3.29-11.43) 07/07/25 03:46 RBC 4.52 10^6/uL (3.85-5.65) 07/07/25 03:46 Hgb 14.90 g/dL (11.27-16.99) 07/07/25 03:46 Hct 41.2 % (36-47) 07/07/25 03:46 MCV 91.2 fl (85-98) 07/07/25 03:46 MCH 33.0 pg (27-33) 07/07/25 03:46 MCHC 36.2 g/dL (30-55) 07/07/25 03:46 RDW 11.4 % (12.1-15.1) L 07/07/25 03:46 Plt Count 309 10^3/cmm (157-399) 07/07/25 03:46 MPV 8.9 fL (7.4-10.4) 07/07/25 03:46 Neut % (Auto) 72.0 % 07/07/25 03:46 Lymph % (Auto) 19.1 % 07/07/25 03:46 [place] % (Auto) 5.2 % 07/07/25 03:46 Eos % (Auto) 2.7 % 07/07/25 03:46 Baso % (Auto) 0.8 % 07/07/25 03:46 Neut # (Auto) 6.41 10^3/uL (1.8-7.7) 07/07/25 03:46 Lymph # (Auto) 1.7 10^3/uL (0.8-4.8) 07/07/25 03:46 [place] # (Auto) 0.5 10^3/uL (0.2-0.9) 07/07/25 03:46 Eos # (Auto) 0.2 10^3/uL (0.0-0.8) 07/07/25 03:46 Baso # (Auto) 0.1 10^3/uL (0.0-0.1) 07/07/25 03:46 Nucleated RBC % (auto) 0 % 07/07/25 03:46 Nucleated RBCs # 0.0 /100WBC 07/07/25 03:46 Sodium 141 mmol/L (136-145) 07/07/25 03:46 Potassium 3.6 mmol/L (3.5-5.1) 07/07/25 03:46 Chloride 99 mmol/L (98-107) 07/07/25 03:46 Carbon Dioxide 22 mmol/L (22-29) 07/07/25 03:46 Anion Gap 23.6 (5-19) H 07/07/25 03:46 BUN 12 mg/dL (6-20) 07/07/25 03:46 Creatinine 0.8 mg/dL (0.5-0.9) 07/07/25 03:46 GFR Calculation 88.9 mL/min (90-130) L 07/07/25 03:46 Glucose 98 mg/dL (65-115) 07/07/25 03:46 Calculated Osmolality 292 mOsm/kg (285-295) 07/07/25 03:46 Lactic Acid 4.2 mmol/L (0.5-2.2) H* 07/07/25 03:46 Lactic Acid (Sepsis) 1.1 mmol/L (0.5-2.2) 07/07/25 07:07 Calcium 8.9 mg/dL (8.5-10.5) 07/07/25 03:46 Phosphorus 4.7 mg/dL (2.5-4.5) H 07/07/25 03:46 Magnesium 1.5 mg/dL (1.7-2.3) L 07/07/25 03:46 Total Bilirubin 0.3 mg/dL (0.15-1.2) 07/07/25 03:46 AST 22 U/L (0-32) 07/07/25 03:46 ALT 21 U/L (0-33) 07/07/25 03:46 Alkaline Phosphatase 66 U/L (35-105) 07/07/25 03:46 Creatine Kinase 210 U/L (26-192) H 07/07/25 03:46 Total Protein 7.1 g/dL (6.6-8.7) 07/07/25 03:46 Albumin 4.6 g/dL (3.5-5.2) 07/07/25 03:46 Globulin 2.5 g/dL (1.3-4.6) 07/07/25 03:46 HCG, Qual Negative (Negative) 07/07/25 03:46 Urine Color Yellow (Yellow) 07/07/25 07:36 Urine Appearance Clear (CLEAR) 07/07/25 07:36 Urine pH 7.0 (5-7) 07/07/25 07:36 Ur Specific [place] 1.024 (1.005-1.030) 07/07/25 07:36 Urine Protein 2+ (Negative) A 07/07/25 07:36 Urine Glucose (UA) Negative (Normal) 07/07/25 07:36 Urine Ketones Trace (Negative) 07/07/25 07:36 Urine Blood Negative (Negative) 07/07/25 07:36 Urine Nitrate Negative (Negative) 07/07/25 07:36 Urine Bilirubin Negative (Negative) 07/07/25 07:36 Urine Urobilinogen 1.0 mg/dL (Negative) 07/07/25 07:36 Ur Leukocyte Esterase Negative (Negative) 07/07/25 07:36 Urine RBC 3-5 /hpf (0-2) 07/07/25 07:36 Urine WBC 0-5 /hpf (0-5) 07/07/25 07:36 Ur Squamous Epith Cells 0-5 /hpf (0-5) 07/07/25 07:36 Amorphous Sediment Not Reportable 07/07/25 07:36 Urine Bacteria 1+ /hpf (NONE) H 07/07/25 07:36 Hyaline Casts 0.81 /lpf 07/07/25 07:36 Urine Opiates Screen Negative ng/mL (Negative) 07/07/25 07:36 Ur Barbiturates Screen Negative ng/mL (Negative) 07/07/25 07:36 Carbamazepine 2.0 ug/mL (4.0-12.0) L 07/07/25 03:46 Ur Phencyclidine Scrn Negative ng/mL (Negative) 07/07/25 07:36 Ur Amphetamines Screen Negative ng/mL (Negative) 07/07/25 07:36 U Benzodiazepines Scrn Positive ng/mL (Negative) H 07/07/25 07:36 Urine Cocaine Screen Negative ng/mL (Negative) 07/07/25 07:36 U Marijuana (THC) Screen Positive ng/mL (Negative) H 07/07/25 07:36 Ethyl Alcohol 20 mg/dL (0-10) H 07/07/25 03:46 Discharge Plan Discharge Patient Disposition: Placed in Observation Admit Provider: Brown Guerrero Clinical Impression: Generalized seizure Coding Level of Care Code ED Senior Net Web Developer for Chg Fwd Documented by User: Carina Abdullahi MD 07/07/25 08:35 HPI - Seizure General: Chief Complaint: Seizure Stated Complaint: SEIZURE Time Seen by Provider: 07/07/25 03:34 Related Data Home Medications ?Medication ?Instructions ?Recorded ?Confirmed oxcarbazepine 300 mg tablet 300 mg PO BID 04/23/25 07/07/25 lacosamide 150 mg tablet (Vimpat) 150 mg PO BID 07/07/25 07/07/25 lamotrigine 25 mg tablet 100 mg PO BID 07/07/25 07/07/25 levetiracetam 750 mg tablet 1,500 mg PO BID 07/07/25 07/07/25 Previous Rx's ?Medication ?Instructions ?Recorded levetiracetam 750 mg tablet 1,500 mg (2 x 750 mg) PO DAILY see 07/07/25 pharmacy comment #60 tabs Allergies Allergy/AdvReac Type Severity Reaction Status Date / Time No Known Allergies Allergy Verified 04/23/25 14:59 PFS ED PFSH: Medical History (Updated 07/07/25 @ 11:28 by Brown Guerrero DO) Anxiety Seizure Viral meningitis Seizure Surgical History History of repair of ACL Football injury Family History Denies family history of Hyperlipidemia Lung disease Hypertension Social History Smoking and tobacco/nicotine status: unknown if used tobacco/nicotine Alcohol intake: current Substance/Drug Use: current Household members: family Housing: Other Details: Currently living with her grandparents Current occupational status: employed Current occupation: She works at [employer] Physical Exam Neuro: TONIA COMA SCALE: document GCS findings [place] coma scale total score: 13 Course Vital Signs: Vital signs: Vital Signs Temperature 98.7 F 07/07/25 17:09 Pulse Rate 105 H 07/07/25 17:09 Respiratory Rate 18 07/07/25 17:09 Blood Pressure 128/71 07/07/25 17:09 Pulse Oximetry 94 07/07/25 17:09 Oxygen Delivery Me thod Room Air 07/07/25 17:09 MDM - Seizure MDM Narrative Medical decision making narrative: Vital signs are stable. The patient appears postictal. She is sleeping. She still confused. No episodes of tonic-clonic seizure after benzodiazepines were given. She was also given 1 g of levetiracetam. CBC and BMP are normal. Magnesium is only slightly low. CT head is negative. Her alcohol level is 20. This could be an alcohol withdrawal seizure. Her lactic acid is minimally elevated at 4.2 postseizure. She is going to get a liter of fluid. She will be checked out to the oncoming physician as she is not yet at baseline. Patient is continue to have confusion here along with tachycardia blood pressures been stable. Patient could be having some alcohol withdrawal as well I spoke to hospitalist will admit for observation Lab Data 07/07/25 03:46 07/07/25 03:46 Labs: Radiology Impressions Head CT 07/07/25 04:50 IMPRESSION: No acute intracranial abnormality. Chest X-Ray 07/07/25 07:30 IMPRESSION: No acute findings. Laboratory Results WBC 8.90 10^3/uL (3.29-11.43) 07/07/25 03:46 RBC 4.52 10^6/uL (3.85-5.65) 07/07/25 03:46 Hgb 14.90 g/dL (11.27-16.99) 07/07/25 03:46 Hct 41.2 % (36-47) 07/07/25 03:46 MCV 91.2 fl (85-98) 07/07/25 03:46 MCH 33.0 pg (27-33) 07/07/25 03:46 MCHC 36.2 g/dL (30-55) 07/07/25 03:46 RDW 11.4 % (12.1-15.1) L 07/07/25 03:46 Plt Count 309 10^3/cmm (157-399) 07/07/25 03:46 MPV 8.9 fL (7.4-10.4) 07/07/25 03:46 Neut % (Auto) 72.0 % 07/07/25 03:46 Lymph % (Auto) 19.1 % 07/07/25 03:46 [place] % (Auto) 5.2 % 07/07/25 03:46 Eos % (Auto) 2.7 % 07/07/25 03:46 Baso % (Auto) 0.8 % 07/07/25 03:46 Neut # (Auto) 6.41 10^3/uL (1.8-7.7) 07/07/25 03:46 Lymph # (Auto) 1.7 10^3/uL (0.8-4.8) 07/07/25 03:46 [place] # (Auto) 0.5 10^3/uL (0.2-0.9) 07/07/25 03:46 Eos # (Auto) 0.2 10^3/uL (0.0-0.8) 07/07/25 03:46 Baso # (Auto) 0.1 10^3/uL (0.0-0.1) 07/07/25 03:46 Nucleated RBC % (auto) 0 % 07/07/25 03:46 Nucleated RBCs # 0.0 /100WBC 07/07/25 03:46 Sodium 141 mmol/L (136-145) 07/07/25 03:46 Potassium 3.6 mmol/L (3.5-5.1) 07/07/25 03:46 Chloride 99 mmol/L (98-107) 07/07/25 03:46 Carbon Dioxide 22 mmol/L (22-29) 07/07/25 03:46 Anion Gap 23.6 (5-19) H 07/07/25 03:46 BUN 12 mg/dL (6-20) 07/07/25 03:46 Creatinine 0.8 mg/dL (0.5-0.9) 07/07/25 03:46 GFR Calculation 88.9 mL/min (90-130) L 07/07/25 03:46 Glucose 98 mg/dL (65-115) 07/07/25 03:46 Calculated Osmolality 292 mOsm/kg (285-295) 07/07/25 03:46 Lactic Acid 4.2 mmol/L (0.5-2.2) H* 07/07/25 03:46 Lactic Acid (Sepsis) 1.1 mmol/L (0.5-2.2) 07/07/25 07:07 Calcium 8.9 mg/dL (8.5-10.5) 07/07/25 03:46 Phosphorus 4.7 mg/dL (2.5-4.5) H 07/07/25 03:46 Magnesium 1.5 mg/dL (1.7-2.3) L 07/07/25 03:46 Total Bilirubin 0.3 mg/dL (0.15-1.2) 07/07/25 03:46 AST 22 U/L (0-32) 07/07/25 03:46 ALT 21 U/L (0-33) 07/07/25 03:46 Alkaline Phosphatase 66 U/L (35-105) 07/07/25 03:46 Creatine Kinase 210 U/L (26-192) H 07/07/25 03:46 Total Protein 7.1 g/dL (6.6-8.7) 07/07/25 03:46 Albumin 4.6 g/dL (3.5-5.2) 07/07/25 03:46 Globulin 2.5 g/dL (1.3-4.6) 07/07/25 03:46 HCG, Qual Negative (Negative) 07/07/25 03:46 Urine Color Yellow (Yellow) 07/07/25 07:36 Urine Appearance Clear (CLEAR) 07/07/25 07:36 Urine pH 7.0 (5-7) 07/07/25 07:36 Ur Specific [place] 1.024 (1.005-1.030) 07/07/25 07:36 Urine Protein 2+ (Negative) A 07/07/25 07:36 Urine Glucose (UA) Negative (Normal) 07/07/25 07:36 Urine Ketones Trace (Negative) 07/07/25 07:36 Urine Blood Negative (Negative) 07/07/25 07:36 Urine Nitrate Negative (Negative) 07/07/25 07:36 Urine Bilirubin Negative (Negative) 07/07/25 07:36 Urine Urobilinogen 1.0 mg/dL (Negative) 07/07/25 07:36 Ur Leukocyte Esterase Negative (Negative) 07/07/25 07:36 Urine RBC 3-5 /hpf (0-2) 07/07/25 07:36 Urine WBC 0-5 /hpf (0-5) 07/07/25 07:36 Ur Squamous Epith Cells 0-5 /hpf (0-5) 07/07/25 07:36 Amorphous Sediment Not Reportable 07/07/25 07:36 Urine Bacteria 1+ /hpf (NONE) H 07/07/25 07:36 Hyaline Casts 0.81 /lpf 07/07/25 07:36 Urine Opiates Screen Negative ng/mL (Negative) 07/07/25 07:36 Ur Barbiturates Screen Negative ng/mL (Negative) 07/07/25 07:36 Carbamazepine 2.0 ug/mL (4.0-12.0) L 07/07/25 03:46 Ur Phencyclidine Scrn Negative ng/mL (Negative) 07/07/25 07:36 Ur Amphetamines Screen Negative ng/mL (Negative) 07/07/25 07:36 U Benzodiazepines Scrn Positive ng/mL (Negative) H 07/07/25 07:36 Urine Cocaine Screen Negative ng/mL (Negative) 07/07/25 07:36 U Marijuana (THC) Screen Positive ng/mL (Negative) H 07/07/25 07:36 Ethyl Alcohol 20 mg/dL (0-10) H 07/07/25 03:46 All radiology interpretation(s) finalized by discharge EKG Data EKG 1: Attestation: I personally reviewed and interpreted this EKG as follows: EKG interpretation date: 07/07/25 EKG interpretation time: 07:54 Interpretation: sinus tach hr [address] elevation qrs 94 qtc 383 Discharge Plan Discharge Patient Disposition: Placed in Observation Admit Provider: Brown Guerrero Clinical Impression: Generalized seizure Coding Level of Care Code ED Senior Net Web Developer for Chg Melvin
[2025-07-07] MEDS: LORazepam 1 MG/0.5 ML injection 2 MG (03:46)
[2025-07-07 03:52] LABS: Hematocrit 41.2 % (36-47); Hemoglobin 14.90 g/dL (11.27-16.99); Mean Corpuscular HGB Conc 36.2 g/dL (30-55); Mean Corpuscular Hemoglobin 33.0 pg (27-33); Mean Corpuscular Volume 91.2 fl (85-98); Nucleated Red Blood Cells % 0 %; Platelet Count 309 10^3/cmm (157-399); Red Blood Count 4.52 10^6/uL (3.85-5.65); White Blood Count 8.90 10^3/uL (3.29-11.43)
[2025-07-07 04:15] LABS: HCG, Serum Qual Negative (Negative)
[2025-07-07] MEDS: LORazepam 1 MG/0.5 ML injection 2 MG IVP (04:17)
[2025-07-07] MEDS: levETIRAcetam 1,000 MG/100 ML PREMIX 400 MG IV (04:17)
[2025-07-07 04:18] LABS: Alanine Aminotransferase 21 U/L (0-33); Albumin Level 4.6 g/dL (3.5-5.2); Alcohol Level 20 mg/dL (0-10); Alkaline Phosphatase 66 U/L (35-105); Anion Gap 23.6 (5-19); Aspartate Amino Transferase 22 U/L (0-32); Blood Urea Nitrogen 12 mg/dL (6-20); Calcium 8.9 mg/dL (8.5-10.5); Carbon Dioxide 22 mmol/L (22-29); Chloride 99 mmol/L (98-107); Creatinine Clr Calc Pharmacy 113.7439; Globulin 2.5 g/dL (1.3-4.6); Glucose 98 mg/dL (65-115); Magnesium 1.5 mg/dL (1.7-2.3); Osmolality Calculated 292 mOsm/kg (285-295); Potassium 3.6 mmol/L (3.5-5.1); Sodium 141 mmol/L (136-145); Total Protein 7.1 g/dL (6.6-8.7)
[2025-07-07 04:25] LABS: Lactic Sepsis W/Reflex 4.2 mmol/L (0.5-2.2)
--- NOTE | 2025-07-07 04:50 | CTR_ITS ---
PROCEDURE INFORMATION: Exam: CT Head Without Contrast Exam date and time: 07/07/2025 4:57 AM Age: 24 years old Clinical indication: Condition or disease; Convulsions or seizures; EMS arrival for seizure. Patient in post ictal state. TECHNIQUE: Imaging protocol: Computed tomography of the head without contrast. Radiation optimization: All CT scans at this facility use at least one of these dose optimization techniques: automated exposure control; mA and/or kV adjustment per patient size (includes targeted exams where dose is matched to clinical indication); or iterative reconstruction. COMPARISON: CT head wo con* [id number] 03/04/2021 1:31 PM RADIATION DOSE METRICS: Total DLP (mGy-cm): 1106.58 FINDINGS: Brain: There is no evidence of acute parenchymal hemorrhage, extra-axial collection, or acute infarction. There is no mass effect, midline shift, or downward herniation. Cerebral ventricles: No ventriculomegaly. Paranasal sinuses: Visualized sinuses are unremarkable. No fluid levels. Mastoid air cells: Visualized mastoid air cells are well aerated. Bones: Unremarkable. No acute fracture. Soft tissues: Unremarkable. CT/CT head wo con* [id number] IMPRESSION: No acute intracranial abnormality.
[2025-07-07 05:02] LABS: Reflex Lactate Order REFLEX LACTIC ORDERD
[2025-07-07 05:22] LABS: Carbamazepine Tegretol 2.0 ug/mL (4.0-12.0)
--- NOTE | 2025-07-07 06:08 | PC.NURSE ---
Patient now alert and oriented to name, , what year it is, but believed that she was in [place]. Dr Moura notified. Nurse instructed to let fluids infuse and then ambulate patient.
--- NOTE | 2025-07-07 06:29 | PC.NURSE ---
Patient was ambulated to doorway. Was unsteady on feet, nurse had to be 1-assist. Patient safely guided back into bed. Dr Abdullahi notified and instructed nurse to let patient rest a little bit longer.
--- NOTE | 2025-07-07 07:04 | PC.NURSE ---
pt unsteady on feet during attempted ambulation. pt states unable to walk down hallway. pt awake and alert, but drowsy and slow to answer.
--- NOTE | 2025-07-07 07:30 | PC.NURSE ---
pt confused, unable to follow commands well. pt attempting to pull out IV and take off monitoring. pt very unsteady when attempting to get up to commode. Dr. Abdullahi aware and at bedside at this time
--- NOTE | 2025-07-07 07:30 | ECG_ITS ---
[facility] Test Date: 2025-07-07 Pat Name: Aleksandra Figueroa Department: Room: Gender: Female Support Clerk: : 2000 Requested By: Carina Abdullahi Order Number: [id number] Dawson MD: Bear Silva M.D. Measurements Intervals [place] Rate: 106 P: 59 RI: 152 QRS: 75 QRSD: 94 T: 42 QT: 321 QTc: 426 Interpretive Statements SINUS TACHYCARDIA ABNORMAL RHYTHM ECG Compared to ECG 12/21/2022 21:35:38 NO SIGNIFICANT CHANGE Electronically Signed On 07-08-2025 22:30:22 CDT by Bear Silva M.D. [email or web address]
--- NOTE | 2025-07-07 07:30 | XRR_ITS ---
PROCEDURE INFORMATION: Exam: XR Chest Exam date and time: 07/07/2025 7:33 AM Age: 24 years old Clinical indication: Dyspnea; Additional info: Seizure TECHNIQUE: Imaging protocol: Radiologic exam of the chest. Views: 1 view. COMPARISON: CR XR chest 1V portable [id number] 12/16/2022 6:05 PM FINDINGS: Lungs: Unremarkable. No consolidation. Pleural spaces: Unremarkable. No pleural effusion. No pneumothorax. Heart/Mediastinum: Unremarkable. No cardiomegaly. Bones/joints: Unremarkable. XR/XR chest 1V portable [id number] IMPRESSION: No acute findings.
[2025-07-07 07:32] LABS: Lactic Acid level (Lactate) 1.1 mmol/L (0.5-2.2)
[2025-07-07 07:48] LABS: Glucose Urine UA Negative (Normal); Nitrate Urine Negative (Negative); Specific Gravity, Urine 1.024 (1.005-1.030)
[2025-07-07 07:53] LABS: Add Urine Microscopic? YES
[2025-07-07 07:56] LABS: PCP Screen Urine Negative (Negative)
[2025-07-07] MEDS: thiamine 100 mg/mL 2mL SDV IVP (08:13)
--- NOTE | 2025-07-07 11:23 | PM.HP ---
Providers/Chief Complaint Admitting Physician: Brown Guerrero DO Primary Care Provider: Malika Rodriguez MD Chief Complaint: SEIZURE History of Present Illness Aleksandra Figueroa is a 24 year old female with seizure disorder likely alcohol and drug abuse. Presents after a grand mal seizure. Patient was postictal in the emergency room she remained confused. She had tachycardia and found to have an alcohol level of 20 and a lactate of 4.2. CT of the head was negative She is placed on observation due to postictal state. Review of Systems Const: Denies: fever(s) or chills Eyes: Denies: change in vision ENMT: Denies: throat pain or nasal congestion Card: Denies: chest pain or palpitations Resp: Denies: dyspnea or productive cough GI: Denies: abdominal pain, nausea, vomiting or change in stool character : Denies: dysuria Musc: Denies: back pain or extremity pain Skin/Breast: Denies: rash or lesions Neuro: Denies: headache(s) or dizziness Psych: Denies: anxiety or depression Ta/Lymph: Denies: easy bruising or easy bleeding Medications/Allergies Home Medications ?Medication ?Instructions ?Recorded ?Confirmed ?Last Taken ?Type oxcarbazepine 300 mg tablet 300 mg PO BID 04/23/25 07/07/25 07/06/25 History lacosamide 150 mg tablet (Vimpat) 150 mg PO BID 07/07/25 07/07/25 07/06/25 History lamotrigine 25 mg tablet 100 mg PO BID 07/07/25 07/07/25 07/06/25 History levetiracetam 750 mg tablet 1,500 mg (2 x 750 mg) PO DAILY see 07/07/25 Unknown Rx pharmacy comment #60 tabs levetiracetam 750 mg tablet 1,500 mg PO BID 07/07/25 07/07/25 07/06/25 History Allergies Allergy/AdvReac Type Severity Reaction Status Date / Time No Known Allergies Allergy Verified 04/23/25 14:59 PFSH Acute PFSH: Medical History Anxiety Seizure Viral meningitis Seizure Surgical History History of repair of ACL Football injury Family History Denies family history of Hyperlipidemia Lung disease Hypertension Social History Smoking and tobacco/nicotine status: unknown if used tobacco/nicotine Alcohol intake: current Substance/Drug Use: current Household members: family Housing: Other Details: Currently living with her grandparents Current occupational status: employed Current occupation: She works at [employer] History: Date of last menstrual period: 06/27/25 Vitals/I&O/Wt Last Vital Signs Temp 100.4 F H 07/07/25 11:15 Pulse 113 H 07/07/25 11:15 Resp 16 07/07/25 11:15 BP 128/73 07/07/25 11:15 Pulse Ox 91 07/07/25 11:15 O2 Del Method Nasal Cannula 07/07/25 11:15 07/06/25 07/07/25 07/07/25 22:59 06:59 14:59 Intake Total 100 / 100 1999 Balance 100 / 100 1999 Weight last 48 hrs Weight 76.204 kg Weight 79.197 kg Physical Exam Narrative: Patient is alert she is oriented to self and place Neuro patient shaky at rest without intention Her exam is nonfocal otherwise HEENT head is normocephalic atraumatic pupils equal round and reactive to light and commendation extraocular muscles are intact there is no scleral icterus neck is supple no JVD carotid bruits or lymphadenopathy Heart is regular normal S1-S2 without murmurs clicks gallops or rubs Lungs clear to auscultation without wheezes rales or rhonchi Abdomen soft nontender nondistended positive bowel sounds no hepatosplenomegaly Extremities no clubbing cyanosis or edema Psych mood and affect are appropriate for condition Back no kyphosis or scoliosis Skin no lesions or rashes Data 07/07/25 03:46 07/07/25 03:46 Other Labs: Lactic acid 4.2 CT Head: My impression: Negative Radiologist's impression: No acute intracranial abnormality A&P Assessment and plan 1. Breakthrough seizure: 2. Alcohol intoxication: 3. History of drug abuse: 4. Post-ictal confusion: Plan: According to our records patient takes the following antiseizure medications: Vimpat 150 mg p.o. twice daily Lamictal 100 mg twice daily -this is max dose Keppra 1500 mg twice daily Trileptal 300 mg twice daily Trileptal level is low at 2. No other drug levels are either back or not sure if they were all obtained. At this time we will increase Vimpat to 200 mg twice a day. Keep other medications at current dosing. I spoke with neurology at [facility]. She actually does follow with neurology outpatient. She is scheduled to see an epileptologist on July 20 at 1130. Will follow today for improvement and discharge accordingly PDMP PDMP Reviewed: Not Reviewed Attestations Medical Necessity Statement*: Patient is hospitalized in the observation status for her postictal state. Coding Level of Care Code Acute Code for g Fwd Diagnoses Breakthrough seizure G40.919 Alcohol intoxication F10.929 History of drug abuse F19.11 Post-ictal confusion F05
--- NOTE | 2025-07-07 12:59 | PC.CHAP ---
Pastoral Care Encounter/Spiritual Assessment Type of Contact [] Declined technical support specialist visit [] Patient/Family/Request visit [] Outpatient visit [] Follow-up visit [] Physician referral [] Code/Alert [x] Routine visit [] Staff referral [] Actively dying [] Patient sleeping [] Family support [] [] Out of room [] Palliative care [] [] Receiving care in room [] Pre-surgical visit [] Trauma [] Long length of stay [] ICU visit [] Other: Relational/Emotional Strength [x] Patient feels connected with others/family/visitors/staff [] Distress [] Loneliness/isolation [] Abandonment Spirituality of Patient [x] Person of Marge [] Attends Nondenominational of their Marge [x] Believes in Prayer [] Reads Bible or Gnosticism materials [] There are Spiritual issues to be addressed Scientific Research Associate Interventions [x] Prayer [] Active listening [] Non-anxious presence [] Spiritual/emotional support [] Crisis/trauma care [] Spiritual counseling [] Bereavement support [] Provided bereavement packet [] Provided Bible/devotional materials [] Provided toy/stuffed animal, coloring book to patient or family member [] Provided Communion [] Anointing/Sullivan [] Salvation [] Completed spiritual assessment [] Other: Impact on Illness or Injury [] Angry [] Fearful [] Anxious [] Often cries [] Exhaustion [] Unable to work [] Unable to attend yarsani [] Unable to walk/stand [] Unable to read [] Unable to drive [] Unable to eat/drink [] Unable to sleep [] Unable to be with family [] Patient intubated [] Other: Summary Time spent with patient
[2025-07-08 01:54] VITALS: BP 166/76; PULSE 91; RESP 16; O2SAT 99
[2025-07-08 04:00] VITALS: BP 116/71; PULSE 83; RESP 19; TEMP 36.7; O2SAT 92
[2025-07-08 06:00] VITALS: PULSE 83
[2025-07-08 07:15] VITALS: BP 136/94; PULSE 103; RESP 17; TEMP 36.9; O2SAT 99
--- NOTE | 2025-07-08 11:13 | P.DS_ITS ---
Discharge Providers Date of Admission: 07/07/25 07:53 Date of Discharge: July 08, 2025 Attending Provider at Admission: Brown Guerrero DO Attending Provider at Discharge: Brown Guerrero DO Primary Care Provider: Malika Rodriguez MD Diagnoses at Discharge Discharge Diagnosis 1. Breakthrough seizure: 2. Alcohol intoxication: 3. History of drug abuse: 4. Post-ictal confusion: Reason for Visit Reason for Visit: SEIZURE Brief History: Aleksandra Figueroa is a 24 year old female with seizure disorder likely alcohol and drug abuse. Presents after a grand mal seizure. Patient was postictal in the emergency room she remained confused. She had tachycardia and found to have an alcohol level of 20 and a lactate of 4.2. CT of the head was negative She is placed on observation due to postictal state. Hospital Course Hospital Course Patient remained postictal for the majority of the day of admission. We continued fluids and resumed her home medications. Today she is alert and oriented with her live-in boyfriend present. I was able to gather more history. She is a fairly heavy drinker. And she had drink until she blacked out late that night prior to admission. She has severe anxiety and uses alcohol and other drugs for treatment. They state her last seizure in March she was at [facility] and previous to that she mostly went to [facility]. [facility] does not have an epileptologist but [facility] does now. She has an appointment on July [address] Reed the new epileptologist at [facility]. We had a long discussion about how alcohol use and other drugs lowers the seizure threshold resulting in a higher likelihood of furthering seizures. The boyfriend shares that he joined at 1 point but did not enjoy the local meetings. We discussed women's groups as well as reaching out to the local offi ce in [place]. I also informed them they can participate in zoom meetings. They both seem interested in this option. The patient was educated on not driving and she states that she had not been since March. They both concur that she and he will both stop drinking alcohol We discussed using nasal medication to prevent and treat seizure and this will be prescribed. Physical Exam Narrative: Alert and oriented still with tremulous hands Heart is regular S1-S2 without murmurs clicks gallops or rubs. She remains slightly tachy at times Lungs clear to auscultation without wheezes rales or rhonchi Abdomen soft nontender nondistended positive bowel sounds no hepatosplenomegaly Extremities no clubbing cyanosis or edema Discharge Data Studies Completed and Pending Completed Studies During Hospitalization Category Date Time Status CT head wo con* [id number] Stat Cat Scan 07/07/25 04:50 Completed CXRP [XR chest 1V portable [id number]] Stat Exams 07/07/25 07:30 Completed Radiology Impressions Head CT 07/07/25 04:50 IMPRESSION: No acute intracranial abnormality. Chest X-Ray 07/07/25 07:30 IMPRESSION: No acute findings. Laboratory Results WBC 8.90 10^3/uL (3.29-11.43) 07/07/25 03:46 RBC 4.52 10^6/uL (3.85-5.65) 07/07/25 03:46 Hgb 14.90 g/dL (11.27-16.99) 07/07/25 03:46 Hct 41.2 % (36-47) 07/07/25 03:46 MCV 91.2 fl (85-98) 07/07/25 03:46 MCH 33.0 pg (27-33) 07/07/25 03:46 MCHC 36.2 g/dL (30-55) 07/07/25 03:46 RDW 11.4 % (12.1-15.1) L 07/07/25 03:46 Plt Count 309 10^3/cmm (157-399) 07/07/25 03:46 MPV 8.9 fL (7.4-10.4) 07/07/25 03:46 Neut % (Auto) 72.0 % 07/07/25 03:46 Lymph % (Auto) 19.1 % 07/07/25 03:46 Sebastian % (Auto) 5.2 % 07/07/25 03:46 Eos % (Auto) 2.7 % 07/07/25 03:46 Baso % (Auto) 0.8 % 07/07/25 03:46 Neut # (Auto) 6.41 10^3/uL (1.8-7.7) 07/07/25 03:46 Lymph # (Auto) 1.7 10^3/uL (0.8-4.8) 07/07/25 03:46 Sebastian # (Auto) 0.5 10^3/uL (0.2-0.9) 07/07/25 03:46 Eos # (Auto) 0.2 10^3/uL (0.0-0.8) 07/07/25 03:46 Baso # (Auto) 0.1 10^3/uL (0.0-0.1) 07/07/25 03:46 Nucleated RBC % (auto) 0 % 07/07/25 03:46 Nucleated RBCs # 0.0 /100WBC 07/07/25 03:46 Sodium 141 mmol/L (136-145) 07/07/25 03:46 Potassium 3.6 mmol/L (3.5-5.1) 07/07/25 03:46 Chloride 99 mmol/L (98-107) 07/07/25 03:46 Carbon Dioxide 22 mmol/L (22-29) 07/07/25 03:46 Anion Gap 23.6 (5-19) H 07/07/25 03:46 BUN 12 mg/dL (6-20) 07/07/25 03:46 Creatinine 0.8 mg/dL (0.5-0.9) 07/07/25 03:46 GFR Calculation 88.9 mL/min (90-130) L 07/07/25 03:46 Glucose 98 mg/dL (65-115) 07/07/25 03:46 Calculated Osmolality 292 mOsm/kg (285-295) 07/07/25 03:46 Lactic Acid 4.2 mmol/L (0.5-2.2) H* 07/07/25 03:46 Lactic Acid (Sepsis) 1.1 mmol/L (0.5-2.2) 07/07/25 07:07 Calcium 8.9 mg/dL (8.5-10.5) 07/07/25 03:46 Phosphorus 4.7 mg/dL (2.5-4.5) H 07/07/25 03:46 Magnesium 1.5 mg/dL (1.7-2.3) L 07/07/25 03:46 Total Bilirubin 0.3 mg/dL (0.15-1.2) 07/07/25 03:46 AST 22 U/L (0-32) 07/07/25 03:46 ALT 21 U/L (0-33) 07/07/25 03:46 Alkaline Phosphatase 66 U/L (35-105) 07/07/25 03:46 Creatine Kinase 210 U/L (26-192) H 07/07/25 03:46 Total Protein 7.1 g/dL (6.6-8.7) 07/07/25 03:46 Albumin 4.6 g/dL (3.5-5.2) 07/07/25 03:46 Globulin 2.5 g/dL (1.3-4.6) 07/07/25 03:46 HCG, Qual Negative (Negative) 07/07/25 03:46 Urine Color Yellow (Yellow) 07/07/25 07:36 Urine Appearance Clear (CLEAR) 07/07/25 07:36 Urine pH 7.0 (5-7) 07/07/25 07:36 Ur Specific Leroy 1.024 (1.005-1.030) 07/07/25 07:36 Urine Protein 2+ (Negative) A 07/07/25 07:36 Urine Glucose (UA) Negative (Normal) 07/07/25 07:36 Urine Ketones Trace (Negative) 07/07/25 07:36 Urine Blood Negative (Negative) 07/07/25 07:36 Urine Nitrate Negative (Negative) 07/07/25 07:36 Urine Bilirubin Negative (Negative) 07/07/25 07:36 Urine Urobilinogen 1.0 mg/dL (Negative) 07/07/25 07:36 Ur Leukocyte Esterase Negative (Negative) 07/07/25 07:36 Urine RBC 3-5 /hpf (0-2) 07/07/25 07:36 Urine WBC 0-5 /hpf (0-5) 07/07/25 07:36 Ur Squamous Epith Cells 0-5 /hpf (0-5) 07/07/25 07:36 Amorphous Sediment Not Reportable 07/07/25 07:36 Urine Bacteria 1+ /hpf (NONE) H 07/07/25 07:36 Hyaline Casts 0.81 /lpf 07/07/25 07:36 Urine Opiates Screen Negative ng/mL (Negative) 07/07/25 07:36 Ur Barbiturates Screen Negative ng/mL (Negative) 07/07/25 07:36 Carbamazepine 2.0 ug/mL (4.0-12.0) L 07/07/25 03:46 Ur Phencyclidine Scrn Negative ng/mL (Negative) 07/07/25 07:36 Ur Amphetamines Screen Negative ng/mL (Negative) 07/07/25 07:36 U Benzodiazepines Scrn Positive ng/mL (Negative) H 07/07/25 07:36 Urine Cocaine Screen Negative ng/mL (Negative) 07/07/25 07:36 U Marijuana (THC) Screen Positive ng/mL (Negative) H 07/07/25 07:36 Ethyl Alcohol 20 mg/dL (0-10) H 07/07/25 03:[address] Head: Radiologist's impression: FINDINGS: Brain: There is no evidence of acute parenchymal hemorrhage, extra-axial collection, or acute infarction. There is no mass effect, midline shift, or downward herniation. Cerebral ventricles: No ventriculomegaly. Paranasal sinuses: Visualized sinuses are unremarkable. No fluid levels. Mastoid air cells: Visualized mastoid air cells are well aerated. Bones: Unremarkable. No acute fracture. Soft tissues: Unremarkable. Vitals Last Vital Signs Temp 98.5 F 07/08/25 07:15 Pulse 103 H 07/08/25 07:15 Resp 17 07/08/25 07:15 BP 136/94 07/08/25 07:15 Pulse Ox 99 07/08/25 07:15 O2 Del Method Room Air 07/08/25 04:00 Discharge Plan Discharge Patient Disposition: Home Condition: Stable Prescriptions: New lacosamide [Vimpat] 50 mg Tablet 200 mg PO BID@0500,1700 Qty: 60 0RF diazepam 5 mg/spray (0.1 mL) spray,non-aerosol 5 mg intranasal PRN Qty: 5 0RF Rx Instructions: 1 spray at aura of a seizure. may repeat in 15 if seizure aura or seizure occurs. Call 911 if seizures occurs lacosamide [Vimpat] 200 mg tablet 200 mg PO BID Qty: 60 0RF Continued oxcarbazepine 300 mg tablet 300 mg PO BID levetiracetam 750 mg tablet 1,500 mg PO DAILY Qty: 60 0RF lamotrigine 25 mg tablet 100 mg PO BID Rx Instructions: Take by mouth week 1=2 1 tablet daily week 3-4 1 tablet twice daily week 5-6 1 tablet am and 2tabs pm week 7-8 2tabs twice daily week 9-10 3tabs twice daily week 11 and on 4 tablets twice daily maintanece dosage levetiracetam 750 mg tablet 1,500 mg PO BID Discontinued lacosamide [Vimpat] 150 mg tablet 150 mg PO BID Home Paraprofessional OK for DC: Hospitalist Discharge Order = DC NOW: Discharge Order (Routine); Ordered 07/08/25 Ordered By: Brown Guerrero Referrals: Malika Rodriguez MD [Primary Care Provider, Family Practice] Referral Note: Please contact your primary care provider Wednesday to schedule a hospital follow up appointment. You need to be seen within 1 week of discharge. Thank you! Discharge Diet: Regular Discharge Activity: Increase activity as tolerated Patient Instructions: Lacosamide (By mouth), Diazepam (Into the nose), Recurrent Seizures in Adults (ED), Patient Portal & Olivia Instructions Activity Restrictions/Additional Instructions: Return for repeated episodes of seizure, fever, or other concerning symptoms. Avoid alcohol. Take your medications appropriately. Plan of Treatment: You must stop drinking alcohol of any kind. Alcohol lowers the seizure threshold and makes it more likely you will have a seizure. Recommend alcoholic synonymous. You can look online or call a local office for assistance No driving You are scheduled with an epileptologist at [facility] neurology. Dr. Reed on July 20 at 1130. Please keep this appointment Note your Vimpat (lacosamide) dosing has been increased from 150 mg twice a day to 200 mg twice a day please fill this prescription and start tonight your other medications are unchanged I have added diazepam spray to prevent seizure and treat seizure Discharge Attestations Time Spent in Discharge Care*: greater than 30 min Quality Metrics Clinical Quality Measures [ No reported AMI, CVA or VTE this stay] Coding Level of Care Code Acute Code for Chg Fwd Diagnoses Breakthrough seizure G40.919 Alcohol intoxication F10.929 History of drug abuse F19.11 Post-ictal confusion F05
--- NOTE | 2025-07-08 11:21 | PC.NURSE ---
Discharge paperwork discussed with patient and significant other. All questions were answered. IV was removed and patient was instructed to leave coban on for about 20 minutes. Patient's home medications and vape was returned to patient. Patient stated she felt comfortable ambulating to exit accompanied by significant other. Patient left floor with all belongings at 1124.
[2025-07-08 11:24] VITALS: BP 136/94; PULSE 103; RESP 17; TEMP 36.9; O2SAT 99
== END 2025-07-08 11:24 | disposition home or self-care (01) ==
LOC: ER 07:59 → MEDSURG 08:35
PROVIDERS: Emergency Medicine; Admitting Provider Internal Medicine; Emergency Provider Emergency Medicine; PCP Family Medicine; Visit Provider Internal Medicine
DX: F10.929 Alcohol use, unspecified with intoxication, unspecified (principal); G40.919 Epilepsy, unspecified, intractable, without status epilepticus; F19.11 Other psychoactive substance abuse, in remission; F05 Delirium due to known physiological condition; Y90.1 Blood alcohol level of 20-39 mg/100 ml; F41.9 Anxiety disorder, unspecified; A87.9 Viral meningitis, unspecified
CPT/HCPCS: 70450; 71045; 80053; 80156; 80306; 80307; 81001; 82550; 83605; 83735; 84100; 84703; 85025; 93005; 96365; 96375; 96376; 99285; G0378; J1953; J2060; J3411; J7030; J9999